=== PATIENT | male | born 1945 | race Caucasian/White ===

== ENCOUNTER 2024-01-15 15:07 | Emergency (ER) | payer MEDICARE, OTHER, SELFPAY ==
[2024-01-15] VITALS (8 sets, daily range): BP systolic 74–115; BP diastolic 57–87
[2024-01-15 15:52] LABS: ALT (SGPT) 36 U/L (0-50); AST (SGOT) 42 U/L (17-59); Albumin 3.8 g/dl (3.5-5.0); Alkaline Phosphatase 107 U/L (38-126); Blood Urea Nitrogen 21 mg/dl (9-20); Calcium 9.9 mg/dl (8.4-10.2); Carbon Dioxide 27 mmol/L (22-30); Chloride 101 mmol/L (98-107); Glucose 137 mg/dl (70-99); Potassium 4.4 mmol/L (3.5-5.1); Sodium 136 mmol/L (135-145); Total Bilirubin 0.9 mg/dl (0.2-1.3); Total Protein 6.6 g/dl (6.3-8.2); eGFR > 60.00
[2024-01-15 15:55] LABS: NT-proBNP 1940 pg/ml; Troponin I < 0.012 ng/ml
[2024-01-15 16:11] LABS: Hemoglobin 13.3 g/dL (13.0-18.0); Mean Corp Hgb Conc. 33.3 g/dL (33.0-37.0); Mean Corpuscular Hgb 29.9 pg (27.0-31.0); Mean Corpuscular Volume 89.9 fL (80.0-94.0); Mean Platelet Volume 10.5 fL (7.4-10.4); Platelet Count 129 10^3/uL (130-400); Red Blood Cell Count 4.45 10^6/uL (4.70-6.10); Red Cell Dist. Width 15.5 % (11.5-14.5); White Blood Cell Count 6.2 10^3/uL (4.8-10.8)
[2024-01-15 16:37] LABS: % Basophils 0.5 % (0-2); % Eosinophils 2.4 % (0-6); % Immature Granulocytes 0.3 % (0-0.5); % Lymphocytes 19.8 % (20.5-51.1); % Monocytes 9.3 % (1.7-9.3); % Neutrophils 67.7 % (42.2-75.2); Absolute Eosinophils 0.2 10^3/uL (0-0.7); Absolute Lymphocytes 1.2 10^3/uL (1.2-3.4); Absolute Monocytes 0.6 10^3/uL (0.1-0.6); Absolute Neutrophils 4.2 10^3/uL (1.4-6.5); Nucleated Red Blood Cells % 0 % (-)
--- NOTE | 2024-01-15 17:05 | ED.GENMED ---
History of Present Illness
General
Chief Complaint: Breathing Problem
Source: patient
Exam Limitations: none
Time Seen by Provider: 01/15/24 16:55
History of Present Illness
History of Present Illness:
See MDM
Past History
Past History
ED Past Medical History: Arrthythmia (A. fib) and HTN
ED Past Surgical History: None
Social History
Tobacco: Non-smoker
Alcohol: None
Phy Exam
Physical Exam
Physical Exam:
See MDM
Scores
Heart Failure Risk
Heart Failure Risk Score: Yes
History of Stroke or TIA: No
History of intubation for respiratory distress: No
Heart rate on ED arrival >/= 110: Yes
SaO2 <90% on arrival on room air: No
HR >/=110 during 3min walk test (or too ill to perform test): No
ECG has acute ischemic changes: No
Urea >/=12mmol/L (BUN 33.6mg/dL): No
Serum CO2>/=35mmol/L: No
Troponin I or T elevated to DE Level (0.4mg/dL): No
NT-proBNP >/=5,000ng/L (5,000pg/ml): No
HF Risk Score: 0
Admission Status: LOW RISK 2.8% Consider discharge to home with f/u visit to PCP/[facility] [facility]
Course
Orders/Labs/Results
Orders:
Orders
01/15/24 15:08
ECG [Electrocardiogram (*1)] Urgent
Reason for Study: Shortness of Breath
EKG- Treatment ONCE
01/15/24 15:24
Complete Blood Count/With Diff Urgent
Comprehensive Metabolic Panel Urgent
Pro-BNP [NT-proBNP] Urgent
Troponin I Urgent
01/15/24 16:04
CR Chest - 2 Views Urgent
Comment:
Reason For Exam: SOB
01/15/24 17:04
Diltiazem HCl [Cardizem] 20 mg IV NOW STA
01/15/24 18:35
Furosemide [Lasix] 40 mg IV ONCE ONE
Abnormal Lab Results
01/15/24
15:24
RBC 4.45 L 10^6/uL
(4.70-6.10)
RDW 15.5 H %
(11.5-14.5)
Plt Count 129 L 10^3/uL
(130-400)
MPV 10.5 H fL
(7.4-10.4)
Lymphocytes % 19.8 L %
(20.5-51.1)
BUN 21 H mg/dl
(9-20)
Glucose 137 H mg/dl
(70-99)
01/15/24 15:24
01/15/24 15:24
Vital Signs
Initial and Last Documented VS:
Initial Vital Signs
Temp Pulse Resp BP Pulse Ox
97.8 F 136 22 115/64 99
01/15/24 15:16 01/15/24 15:16 01/15/24 15:16 01/15/24 15:16 01/15/24 15:16
Last Documented Vital Signs
Temp Pulse Resp BP Pulse Ox
97.8 F 84 13 74/57 99
01/15/24 15:16 01/15/24 17:45 01/15/24 17:45 01/15/24 17:45 01/15/24 15:16
MDM/Problems Addressed
Differential Diagnosis Includes:
HPI and MDM Narrative:
78-year-old male presenting with shortness of breath and tachycardia. Symptoms worsening for past several days. Patient has a history of paroxysmal A-fib requiring cardioversion in the past. Patient claims compliance with Eliquis over the past
several months. He was recently placed on 40 mg Lasix over the past month or so. Patient states that his legs are becoming more swollen. His event decorator suggested ER evaluation.
On exam, patient is well-appearing nontoxic but he is in A-fib with RVR. There is clear signs of CHF exacerbation in both legs. He has not required increased oxygenation. Will give trial of IV Cardizem and attempt to chemically cardiovert. Will
obtain chest x-ray. Will consider electrical cardioversion
Physical exam
General: Well appearing and non-toxic
HEENT: protecting airway
Neck: appears supple
CV: No evidence of cyanosis. Tachycardic and irregular
Resp: No accessory muscle use. Lungs clear
Abd: Non-distended
Extremities: +2 pitting edema bilateral lower extremity
Neuro: alert
Psych: Normal affect
Skin: Intact
Problems Addressed including Acute and Chronic Conditions affecting care:
1. A-fib with RVR
Acuity: acute
Prognosis: unstable
Details: Will give IV Cardizem and attempt for chemical cardioversion. Will consider synchronized cardioversion given patient and stating compliance with Eliquis
2. CHF exacerbation
Acuity: acute
Prognosis: stable
Details: Unsure if this is likely related to A-fib. Will consider doubling Lasix for the next few days.
Updates
After IV Cardizem, patient now rate controlled. Patient states he feels much better. I still cardioversion but patient states he wants to go home and talk to his event decorator. Discussed doubling his Lasix for the next few days. Because he is
maxed on metoprolol, I cannot alter his dosing.
Differential Diagnosis (but not limited to): A-fib with RVR, CHF exacerbation, pulm edema
Testing considered: D-dimer but he is on eliquis
Drug therapy (if applicable): OTC meds, please see d/c instruction regarding Rx drugs
Amount and/or Complexity of Data Reviewed
Clinical info obtained from: Patient
External data reviewed: N/A
Labs I independently reviewed (but not limited to): trop normal, elevated BNP
Radiology: X-ray independently reviewed: Chest x-ray with mild edema
Pulse Ox: not hypoxic
EKG independently reviewed: A-fib with RVR, normal axis, no STEMI
Predictive Maintenance Technician: A-fib with RVR
Critical Care: The high probability of a clinically significant, sudden or life threatening deterioration of the cardiopulmonary system(s) required my full and direct attention, intervention and personal management. The aggregate critical care time
was 31 minutes. This time is in addition to time spent performing reported procedures but includes the following:
[x] Data Review and interpretation
[x] Patient assessment and monitoring of vital signs
[x] Documentation
[x] Medication orders and management
Risk of Complication:
Social Determinants of health: Good social support
Discussed with other providers: N/A
Escalation of Care includes Admit/Obs: After being observed in the Emergency Department, pt stable for discharge.
Occasional wrong word or 'sound a like' substitutions may have occurred due to the inherent limitations of voice recognition software. Read the chart carefully and recognize, using context, where substitutions have occurred.
*Critical Care Note
Total Time (30-74mins, 75-104mins- exclusive of procedures): 31 min
ED Attending Note
-
Portions of this chart may have been created with voice recognition software.� Occasional wrong word or��sound alike� substitutions may have occurred due to the inherent limitations of voice recognition software.
Discharge Plan
Departure
Patient Disposition: Home (Routine Discharge)
Date of Disposition: 01/15/24
Time of Disposition: 18:39
Patient with high blood pressure during this ER visit?: No
Discharge Problem:
A-fib, Acute exacerbation of CHF (congestive heart failure)
Instructions: Atrial Fibrillation (DC)
Prescriptions:
No Action
atorvastatin 40 MG tablet
40 mg PO DAILY
metoprolol succinate 100 MG tablet extended release 24 hr
100 mg PO DAILY
thiamine HCl (vitamin B1) 100 MG tablet
100 mg PO DAILY
lorazepam 0.5 MG tablet
0.5 mg PO DAILY
diphenhydramine HCl [Banophen] 25 MG capsule
25 mg PO HS
sertraline 25 MG tablet
25 mg PO HS
folic acid 1 MG tablet
1 mg PO DAILY
metformin 500 MG tablet extended release 24 hr
500 mg PO BID
potassium chloride 10 MEQ tablet,ER particles/crystals
20 meq PO DAILY
cholecalciferol (vitamin D3) 1,000 UNITS tablet
1,000 units PO DAILY
apixaban [Eliquis] 5 MG tablet
5 mg PO BID
magnesium oxide 400 MG tablet
400 mg PO DAILY
Referrals:
UNKNOWN - PT DOES,NOT KNOW [Family Provider] -
Activity Restrictions/Additional Instructions:
Please return for any worsening symptoms.
You may return at any time if you have further concerns.
As we discussed, please double your Lasix dose for the next 3 days. I want you to take 80 mg a day instead of 40 mg. Please return if you develop a fast heart rate as we discussed.
Please follow up with your event decorator at the first available appointment, preferably this week.
Thank you for choosing [facility].
Interventions
Interventions:
*Risk Screen - Suicide Last Done: 01/15/24 15:10
*General Assessment Last Done: 01/15/24 15:10
*Neglect/Abuse Screening Last Done: 01/15/24 15:10
ED- Cardiac Assessment Last Done: 01/15/24 17:53
ED- Pulmonary Assessment Last Done: 01/15/24 17:53
Discharge Date and Time
Print Language: IRANIAN
[2024-01-15] MEDS: CARDIZEM 20 MG IV (17:41)
[2024-01-15] MEDS: LASIX 40 MG IV (18:46)
== END 2024-01-15 18:49 | disposition home or self-care (01) ==
LOC: EMR 15:07
PROVIDERS: Emergency Medicine; EMERGENCY PHYSICIAN Student in an Organized Health Care Education/Training Program
DX: I48.91 Unspecified atrial fibrillation (principal); I11.0 Hypertensive heart disease with heart failure; I50.9 Heart failure, unspecified
CPT/HCPCS: 99283; 96374; 96375; 71046; 80053; 83880; 84484; 85025; 93005

== ENCOUNTER 2024-04-05 13:25 | Inpatient (IN) | payer OTHER, SELFPAY ==
[2024-04-05] VITALS (19 sets, daily range): BP systolic 89–134; BP diastolic 56–92; PULSE 77–85; BMI 25.8; BMI 25.1
--- NOTE | 2024-04-05 11:21 | ED.GENMED ---
History of Present Illness
General
Chief Complaint: Abnormal Lab Value
Source: patient
Exam Limitations: none
Time Seen by Provider: 04/05/24 11:09
History of Present Illness
History of Present Illness:
See MDM
Past History
Past History
ED Past Medical History: Arrthythmia (A. fib) and HTN
ED Past Surgical History: None
Social History
Tobacco: Non-smoker
Alcohol: None
Phy Exam
Physical Exam
Physical Exam:
See MDM
Course
Orders/Labs/Results
Orders:
Orders
04/05/24 11:09
IV Insert/Care/Rem.- Treatment PRN
04/05/24 11:10
Electrocardiogram (*1) Urgent
Reason for Study: Syncope
EKG- Treatment ONCE
04/05/24 11:19
IV Insert/Care/Rem.- Treatment PRN
Pantoprazole 80 mg/100 ml Nss [Protonix] 80 mg in 100 ml IV NOW
Pantoprazole [Protonix IV] 80 mg IV NOW STA
04/05/24 11:20
Electrocardiogram (*1) Stat
Reason for Study: Other
Other Reason for Exam: GI Bleed
EKG- Treatment ONCE
04/05/24 11:42
Complete Blood Count/With Diff Urgent
Comprehensive Metabolic Panel Urgent
PTT Urgent
Prothrombin Time Urgent
04/05/24 11:43
Type+Screen Urgent
04/05/24 11:54
0.9% Sodium Chloride 1000 ml [Nss] 1,000 ml IV BOLUS
04/05/24 12:14
ABO2 Urgent
BBK Wristband Number:
Associate notified that ABO2 has been ordered: [id number]
Date: 04/05/24
Time: 11:57
Real Estate Development Manager ID: [id number]
04/05/24 12:31
Blood Bank Products [* Blood Bank Products] Urgent
's Orders: Donato Bowles, DO
Blood Bank Products: *Packed RBC Leuko(PRBC's)
Quantity: 2
Transfuse Today: Yes
Reason: Bleeding
04/05/24 12:39
Consult Gastroenterology [GASTROINTESTINAL CONSULT] Urgent
Consulting Provider: Kwame Hooks
Was physician already notified: Yes
Abnormal Lab Results
04/05/24
11:42
WBC 3.5 L 10^3/uL
(4.8-10.8)
RBC 2.15 L 10^6/uL
(4.70-6.10)
Hgb 6.2 L* g/dL
(13.0-18.0)
Hct 19.6 L* %
(39.0-52.0)
MCHC 31.6 L g/dL
(33.0-37.0)
RDW 15.9 H %
(11.5-14.5)
Absolute Lymphs (auto) 0.7 L 10^3/uL
(1.2-3.4)
Immature Gran % 0.6 H %
(0-0.5)
Lymphocytes % 18.9 L %
(20.5-51.1)
PT 19.5 H Sec
(11.4-14.6)
APTT 39.0 H Sec
(23.4-35.0)
Carbon Dioxide 31 H mmol/L
(22-30)
Glucose 127 H mg/dl
(70-99)
Total Protein 5.4 L g/dl
(6.3-8.2)
Albumin 3.2 L g/dl
(3.5-5.0)
04/05/24 11:42
04/05/24 11:42
Vital Signs
Initial and Last Documented VS:
Initial Vital Signs
Temp Pulse Resp BP Pulse Ox
98.2 F 93 16 98/61 98
04/05/24 09:37 04/05/24 09:37 04/05/24 09:37 04/05/24 09:37 04/05/24 09:37
Last Documented Vital Signs
Temp Pulse Resp BP Pulse Ox
98.2 F 75 16 89/60 100
04/05/24 09:37 04/05/24 11:45 04/05/24 11:47 04/05/24 11:35 04/05/24 11:36
MDM/Problems Addressed
Differential Diagnosis Includes:
HPI and MDM Narrative:
79-year-old male presenting for evaluation of generalized fatigue, syncope and low hemoglobin. Patient has had black stools for over a week. He states blood work performed by PCP showed hemoglobin of 9. Patient is on Eliquis for A-fib and his
last dose was this morning. at bedside states that he looks more pale than normal
On exam, he is well-appearing nontoxic. He does appear pale. He is a soft and nontender abdomen he does have very dark stool that his hemoglobin positive. Will start PPI drip and obtain type and screen and ultimately admit
Physical exam
General: Well appearing and non-toxic
HEENT: protecting airway
Neck: appears supple
CV: No evidence of cyanosis. Regular rate, irregular rhythm
Resp: No accessory muscle use
Abd: Non-distended and nontender
Rectal: Melanotic stool that is guaiac positive
Extremities: No deformities
Neuro: alert
Psych: Normal affect
Skin: Pale
Problems Addressed including Acute and Chronic Conditions affecting care:
1. Upper GI bleeding
Acuity: acute
Prognosis: unstable
Details: Given the Eliquis and melanotic stool, will obtain type and screen. PPI bolus and drip started
Updates
11:50 AM patient started on IV fluids for hypotension
12:30 PM patient found to have a hemoglobin of 6.2. Patient signed consent for 2 units of blood. GI made aware
Differential Diagnosis (but not limited to): Upper GI bleeding, symptomatic anemia
Testing considered: CT angiogram abdomen pelvis but the bleeding does not appear brisk enough
Drug therapy (if applicable): OTC meds, please see d/c instruction regarding Rx drugs
Amount and/or Complexity of Data Reviewed
Clinical info obtained from: Patient
External data reviewed: N/A
Labs I independently reviewed (but not limited to): Hemoglobin 6.2
Radiology: N/A
Pulse Ox: not hypoxic
EKG independently reviewed: A-fib, normal axis, no STEMI
Lithographic Plate Maker: A-fib
Critical Care: The high probability of a clinically significant, sudden or life threatening deterioration of the cardiovascular/GI system(s) required my full and direct attention, intervention and personal management. The aggregate critical care
time was 35 minutes. This time is in addition to time spent performing reported procedures but includes the following:
[x] Data Review and interpretation
[x] Patient assessment and monitoring of vital signs
[x] Documentation
[x] Medication orders and management
Risk of Complication:
Social Determinants of health: Good social support
Discussed with other providers: Hospitalist, GI
Escalation of Care includes Admit/Obs: Given GI bleeding with symptomatic anemia, will transfuse and admit
Occasional wrong word or 'sound a like' substitutions may have occurred due to the inherent limitations of voice recognition software. Read the chart carefully and recognize, using context, where substitutions have occurred.
*Critical Care Note
Total Time (30-74mins, 75-104mins- exclusive of procedures): 35 min
ED Attending Note
-
Portions of this chart may have been created with voice recognition software.� Occasional wrong word or��sound alike� substitutions may have occurred due to the inherent limitations of voice recognition software.
Discharge Plan
Departure
Patient Disposition: Admit
Date of Disposition: 04/05/24
Time of Disposition: 12:44
Admit to: IMU
Presentation/result/management discussed w/ accepting MD/DO: Hospitalist
Discharge Problem:
UGIB (upper gastrointestinal bleed), Symptomatic anemia
Prescriptions:
No Action
metoprolol succinate 100 MG tablet extended release 24 hr
100 mg PO BID
sertraline 25 MG tablet
50 mg PO HS
Eliquis 5 MG tablet
5 mg PO BID
furosemide [Lasix] 40 mg Tablet
40 mg PO DAILY
metformin 500 mg Tablet
500 mg PO BID
cetirizine [Zyrtec] 10 mg Tablet
10 mg PO DAILY
atorvastatin [Lipitor] 10 mg Tablet
10 mg PO HS
donepezil 10 mg Tablet
10 mg PO HS
Theragen Tablet
1 tab PO DAILY
tamsulosin [Flomax] 0.4 mg Capsule
0.4 mg PO QPM
digoxin 62.5 mcg (0.0625 mg) Tablet
62.5 mcg PO DAILY
polyethylene glycol 3350 [Miralax] 17 gram Powder In Packet
17 g PO DAILY
diphenhydramine-acetaminophen [Tylenol PM Extra Strength] 25-500 mg Tablet
1 tab PO HSPRN PRN (Reason: SLEEP)
Referrals:
Hung Oneal CRNP [Family Provider] -
Interventions
Interventions:
*Risk Screen - Suicide Last Done: 04/05/24 09:37
*General Assessment Last Done: 04/05/24 09:37
*Neglect/Abuse Screening Last Done: 04/05/24 09:37
ED- Fall Risk Assessment Last Done: 04/05/24 11:49
*ED COVID-19 Vaccine History Last Done: 04/05/24 11:48
Discharge Date and Time
Print Language: URUGUAYAN
[2024-04-05] MEDS: PROTONIX IV 80 MG IV (11:43)
[2024-04-05] MEDS: PROTONIX 100 IV (11:43)
[2024-04-05] MEDS: NSS 1000 IV (11:57)
[2024-04-05 12:10] LABS: ALT (SGPT) 25 U/L (0-50); AST (SGOT) 24 U/L (17-59); Albumin 3.2 g/dl (3.5-5.0); Alkaline Phosphatase 82 U/L (38-126); Blood Urea Nitrogen 15 mg/dl (9-20); Carbon Dioxide 31 mmol/L (22-30); Chloride 103 mmol/L (98-107); Estimated Creatinine Clearance 79 ml/min; Glucose 127 mg/dl (70-99); Potassium 3.6 mmol/L (3.5-5.1); Sodium 141 mmol/L (135-145); Total Bilirubin 0.3 mg/dl (0.2-1.3); Total Protein 5.4 g/dl (6.3-8.2); eGFR > 60.00
[2024-04-05 12:11] LABS: INR 1.67; PT 19.5 Sec (11.4-14.6)
[2024-04-05 12:13] LABS: % Basophils 0.3 % (0-2); % Eosinophils 1.7 % (0-6); % Immature Granulocytes 0.6 % (0-0.5); % Lymphocytes 18.9 % (20.5-51.1); % Monocytes 7.9 % (1.7-9.3); % Neutrophils 70.6 % (42.2-75.2); Absolute Eosinophils 0.1 10^3/uL (0-0.7); Absolute Lymphocytes 0.7 10^3/uL (1.2-3.4); Absolute Monocytes 0.3 10^3/uL (0.1-0.6); Absolute Neutrophils 2.5 10^3/uL (1.4-6.5); Hematocrit 19.6 % (39.0-52.0); Hemoglobin 6.2 g/dL (13.0-18.0); Mean Corp Hgb Conc. 31.6 g/dL (33.0-37.0); Mean Corpuscular Hgb 28.8 pg (27.0-31.0); Mean Corpuscular Volume 91.2 fL (80.0-94.0); Mean Platelet Volume 9.3 fL (7.4-10.4); Nucleated Red Blood Cells % 0 % (-); Platelet Count 142 10^3/uL (130-400); Red Blood Cell Count 2.15 10^6/uL (4.70-6.10); Red Cell Dist. Width 15.9 % (11.5-14.5); White Blood Cell Count 3.5 10^3/uL (4.8-10.8)
--- NOTE | 2024-04-05 12:42 | HPS.HSE ---
Family Physician
-
Family Physician: CLAYTON Mcdonald
Chief Complaint
-
Dizziness
History of Present Illness
Patient is an 79 y/o male past medical history of A-Fib on Eliquis, hypertension, diabetes, and prior alcohol abuse who presents with dizziness. Patient reports dizziness for the past several days which has resulted in several falls. He was seen by
his PCP earlier this week who did blood work as outpatient. He received a call earlier today that his Hgb was low and was told to go to the emergency department for evaluation. He reports very dark to black colored stool for the past week. He
notes that consistency of his bowels has not been his normal. He denies prior history of GI bleed. He denies abdominal pain, nausea, vomiting or decreased appetite. He denies chest pain, palpitations or shortness of breath.
Medical History
Past Medical History
Past Medical History: Reports Other
Additional Past Medical History:
Paroxysmal Atrial Fibrillation
Essential Hypertension
Hyperlipidemia
Diabetes Mellitus, Type II
Depression
Mild Cognitive Impairment
BPH
Colon Cancer
Past Surgical History: Reports Other
Additional Past Surgical History:
Left Ankle ORIF
Hemicolectomy
Social History
Tobacco: Non-smoker
Alcohol: Former (Patient reports he has been sober for the past 4 years)
Family History
Family History: Not pertinent
Allergies / Home Medications
Allergies reflects when Allergies were last updated in [employer].
Home Medications with original date entered in [employer]
Allergy/Medication List:
Allergies
Allergy/AdvReac Type Severity Reaction Status Date / Time
No Known Allergies Allergy Verified 04/05/24 09:36
Home Medications
apixaban 5 mg tablet (Eliquis) 5 mg PO BID Blood clot prevention/tx 06/04/21
metoprolol succinate 100 mg tablet,extended release 24 hr 100 mg PO BID Heart disease/condition 06/04/21
sertraline 25 mg tablet 50 mg PO HS Depression 06/04/21
atorvastatin 10 mg tablet (Lipitor) 10 mg PO HS 04/05/24
cetirizine 10 mg tablet (Zyrtec) 10 mg PO DAILY 04/05/24
digoxin 62.5 mcg (0.0625 mg) tablet 62.5 mcg PO DAILY 04/05/24
diphenhydramine 25 mg-acetaminophen 500 mg tablet (Tylenol PM Extra Strength) 1 tab PO HSPRN PRN SLEEP 04/05/24
donepezil 10 mg tablet 10 mg PO HS 04/05/24
furosemide 40 mg tablet (Lasix) 40 mg PO DAILY 04/05/24
metformin 500 mg tablet 500 mg PO BID 04/05/24
polyethylene glycol 3350 17 gram oral powder packet (Miralax) 17 g PO DAILY 04/05/24
tamsulosin 0.4 mg capsule (Flomax) 0.4 mg PO QPM 04/05/24
therapeutic multivitamin 1 tab PO DAILY 04/05/24
Review of Systems
-
A 12 point ROS was completed and negative except as noted: Yes
Constitutional: Denies Fever or Chills
Respiratory: Denies Cough or Trouble Breathing
Cardiac: Denies Chest Pain or Palpitations
Abdomen/GI: Reports See HPI
Physical Exam
Vital Signs
Vital Signs
Temp Pulse Resp BP Pulse Ox
98.2 F 75 16 89/60 100
04/05/24 09:37 04/05/24 11:45 04/05/24 11:47 04/05/24 11:35 04/05/24 11:36
Physical Exam
General: Comfortable and Conversant
HEENT: Anicteric and Moist mucous membranes
Respiratory: Clear and Non Labored Respirations
Cardiac: S1/S2, Irregular Rhythm and Murmur
GI: Soft, Non Tender and Non Distended
Rectal: Hem Positive (Per ED provider)
Musculoskeletal: Other (+1 pitting edema bilateral lower extremities)
Skin: Warm and Dry
Neuro: Awake, Alert, Oriented and Nonfocal/grossly intact
Psych: Calm
Laboratory Results
-
04/05/24 11:42
04/05/24 11:42
Laboratory Results
PT 19.5 Sec (11.4-14.6) H 04/05/24 11:42
INR 1.67 04/05/24 11:42
APTT 39.0 Sec (23.4-35.0) H 04/05/24 11:42
Total Bilirubin 0.3 mg/dl (0.2-1.3) 04/05/24 11:42
AST 24 U/L (17-59) 04/05/24 11:42
ALT 25 U/L (0-50) 04/05/24 11:42
Alkaline Phosphatase 82 U/L (38-126) 04/05/24 11:42
Data Reviewed
-
Lab Data: Labs Reviewed by me
Impression/Plan
-
Acute Blood Loss Anemia secondary to GI Bleed
-Consult GI
-Transfuse 2 units PRBCs
-Hold Eliquis
-Continue Protonix IV BID
-Allow clear liquids for now then NPO after midnight for possible EGD in AM
Paroxysmal Atrial Fibrillation
-Eliquis on hold due to GI Bleed
-Hold metoprolol due to hypotension
-Continue digoxin
Essential Hypertension
-Metoprolol on hold - Resume when BP improves
Hyperlipidemia
-Continue atorvastatin
Diabetes Mellitus, Type II
-Hold metformin
-Monitor sugars and continue coverage insulin
Depression
-Continue sertraline
Mild Cognitive Impairment
-Continue Aricept
BPH
-Continue Flomax
Hx Colon Cancer s/p Hemicolectomy
DVT proph: SCDs
Code Status: Full Code
--- NOTE | 2024-04-05 13:37 | W.PN.UPDATE ---
Update Note
Progress Note Update
This is an addendum to the H&P written by Maira Coleman 04/05/2024. Patient seen and examined independently with PA.
79-year-old male past medical history of colon cancer status post hemicolectomy 7 years ago, persistent atrial fibrillation on Eliquis, dementia, type 2 diabetes, anxiety/depression, former alcohol use disorder, BPH, presenting with dizziness
secondary to symptomatic anemia with black stools for the past week. Patient does not drink alcohol anymore. No NSAID use.
Patient initially hypotensive with blood pressure 98/61. Hemoglobin of 6.2.
Concern for upper GI bleeding with hypotension. No active bleeding. Clear liquid diet, n.p.o. past midnight for likely EGD tomorrow once Eliquis washout. Blood pressure improved with IV fluids. 2 units of blood, anemia workup. Protonix drip.
GI consulted. Hold antihypertensive medications including Lasix.
--- NOTE | 2024-04-05 14:05 | CON.GI ---
Addendum entered and electronically signed by Kwame Hooks DO 04/05/24 18:39:
I saw and examined the patient.
The AIRCRAFT REFUELLER's note was reviewed and I agree with the note.
Comment: This is a 79 y.o male with past medical history of HTN, HLD, DM, A Fib (on eliquis), EtOH abuse without cirrhosis, and colon cancer (s/p resection > 15 yrs ago) who presented to the ED after abnormal outpatient labs for a low Hgb. Found to
have symptomatic anemia and dark black stools concerning for melena over the past week. No prior history of GI bleeding in the past. Denies any prior EGD and admits last colonoscopy was 5 years ago for surveillance given personal history of CRC.
Denies any prior known liver disease and denies any significant EtOH abuse. Last dose of eliquis this AM on 04/05/2024. Otherwise, no other NSAIDs or other anti-platelet agents. HD-stable although soft BP with initial SBP 90s in ED. Labs notable for
BBUN 15 and Magnetizer 0.8. LFTs wnl. CBC with Hgb 6.2 (prev 13.3 on 01/2024) and plts 142. INR 1.67 (likely 2/2 DOAC rather than synthetic dysfunction). Etiology concerning for non-variceal UGIB resulting in symptomatic anemia and acute blood loss anemia.
Unfortunately, due to timing of eliquis earlier this AM unable to perform EGD as therapeutic interventions would be quite limited. Fortunately, remains HD-stable and responding to blood transfusions and fluid resuscitation without signs to suggest
brisk GI bleeding.
Recommendations:
- Okay for CLD
- S/p 2 uPRBCs. Trend Hgb with serial CBC, transfuse for goal Hgb > 8.0
- IV PPI gtt x 72 hrs
- IV iron while inpatient
- Given recent eliquis (04/05- ) deferred EGD for today
- Plan for tentative EGD on 04/08/24, to allow for two full day washout of eliquis
- Will reconsider earlier EGD if clinical course were to change and concern for brisk GI bleeding
- If EGD is unremarkable this admission, would then require colonoscopy especially given hx of CRC. Doubt LGIB
- If brisk hematochezia or concern for HD-instability would obtain CTA in attempts of localization
- Avoidance of all NSAIDs
- Rest of care as outlined below
GI team will continue to follow while inpatient.
Thank you for allowing me to participate in the care of this patient. Please do not hesitate to call for any further questions.
Original Note:
Consultation
-
Date/Time Consultation Requested: 04/05/24 1239
Date/Time Consultation Performed: 04/05/24 1345
Requesting Provider: GEORGE Rea
Performing Provider: Dr. Hooks/CLAYTON Figueroa
Reason for Consultation: melena, anemia
Medical History
Chief Complaint / HPI
Chief Complaint: abnormal labs
History of Present Illness:
79-year-old male with past medical history of atrial fibrillation on Eliquis last dose this morning, hypertension, diabetes, prior alcohol abuse (quit 4 years ago), colon cancer status post colon resection approximately 15 years ago, hyperlipidemia,
depression and BPH who presents to the emergency room after being called by his PCP and notified about significant anemia. The patient does state that he had noticed that his stools were darker over the past week. He also did have some dyspnea on
exertion and fatigue over the past 2 days. He also did have momentary episodes of passing out once each day over the past 2 days. Other than his dark stools he had no GI complaints. He has never had an upper endoscopy before he states his last
colonoscopy was approximately [address] Zelaya. He states that he did not require any further colonoscopies after that point. He denies ever having any upper GI symptoms. He is a reformed smoker however quit many years ago. He used to
drink upwards of a quarter bottle of vodka daily at his worst. He was never told of any liver disease. He states he had a recent cardioversion for atrial fibrillation and he is going to require an ablation as he remains in atrial fibrillation. He
denies any fevers, chills, nausea, vomiting, hematochezia, dysphagia or odynophagia. He denies any early satiety or unintentional weight loss. He eats well. He does state that he was placed on Lasix and he did reduce weight secondary to water
weight and getting up to urinate 6 times a night. Patient is currently being transfused 1 out of 2 units packed red blood cells. WBC 3.5, hemoglobin 6.2, hematocrit 19.6, platelets 142, PT 19.5, INR 1.67, sodium 141, potassium 3.6, chloride 103,
BUN 15, creatinine 0.8, glucose 127, total bilirubin 1.3, AST 24, ALT 25, alk phos 82, albumin 3.2 rectal in ER by ER provider shows dark OB positive stool.
Past Medical History
Past Medical History: Arrhythmias (Atrial fibrillation), Cancer (Colon cancer status post resection), HTN, Hypercholesterolemia, NIDDM and Other (Prior alcohol abuse (quit 4 years ago), depression, BPH)
Past Surgical History: Other (Left ankle ORIF, hemicolectomy)
Social History
Tobacco: Former Smoker
Alcohol: Former (Prior alcohol abuse (quit 4 years ago))
Drug: None
Personal:
Living: With Family
Employment: Retired
Family History
Family History: Other (Paternal grandfather colon cancer, father colon cancer)
Allergies / Home Medications
Allergy/AdvReac Type Severity Reaction Status Date / Time
No Known Allergies Allergy Verified 04/05/24 09:36
�Medication �Instructions �Recorded
apixaban 5 mg tablet (Eliquis) 5 mg PO BID Blood clot 06/04/21
prevention/tx
metoprolol succinate 100 mg 100 mg PO BID Heart 06/04/21
tablet,extended release 24 hr disease/condition
sertraline 25 mg tablet 50 mg PO HS Depression 06/04/21
atorvastatin 10 mg tablet (Lipitor) 10 mg PO HS 04/05/24
cetirizine 10 mg tablet (Zyrtec) 10 mg PO DAILY 04/05/24
digoxin 62.5 mcg (0.0625 mg) tablet 62.5 mcg PO DAILY 04/05/24
diphenhydramine 25 1 tab PO HSPRN PRN SLEEP 04/05/24
mg-acetaminophen 500 mg tablet
(Tylenol PM Extra Strength)
donepezil 10 mg tablet 10 mg PO HS 04/05/24
furosemide 40 mg tablet (Lasix) 40 mg PO DAILY 04/05/24
metformin 500 mg tablet 500 mg PO BID 04/05/24
polyethylene glycol 3350 17 gram 17 g PO DAILY 04/05/24
oral powder packet (Miralax)
tamsulosin 0.4 mg capsule (Flomax) 0.4 mg PO QPM 04/05/24
therapeutic multivitamin 1 tab PO DAILY 04/05/24
Review of Systems
-
All other systems: A 12 pt ROS was Negative except as stated above in HPI
Vital Signs
Temp Pulse Resp BP Pulse Ox
97.7 F 91 18 115/85 100
04/05/24 13:49 04/05/24 13:49 04/05/24 13:49 04/05/24 13:49 04/05/24 13:49
Physical Exam
Exam
General: No Apparent Distress
HEENT: Anicteric
Respiratory: Clear
Cardiac: Irregular Rhythm
GI: Soft, Non Tender, Non Distended and Normal Bowel Sounds
Musculoskeletal: Edema (Trace bilateral lower extremity edema)
Skin: Warm and Dry
Neuro: AO x 3
Psych: Calm
Results
WBC 3.5 10^3/uL (4.8-10.8) L 04/05/24 11:42
Hgb 6.2 g/dL (13.0-18.0) L* 04/05/24 11:42
Hct 19.6 % (39.0-52.0) L* 04/05/24 11:42
MCV 91.2 fL (80.0-94.0) 04/05/24 11:42
Plt Count 142 10^3/uL (130-400) 04/05/24 11:42
Absolute Neuts (auto) 2.5 10^3/uL (1.4-6.5) 04/05/24 11:42
PT 19.5 Sec (11.4-14.6) H 04/05/24 11:42
INR 1.67 04/05/24 11:42
APTT 39.0 Sec (23.4-35.0) H 04/05/24 11:42
Sodium 141 mmol/L (135-145) 11 11:42
Potassium 3.6 mmol/L (3.5-5.1) 11 11:42
Chloride 103 mmol/L (98-107) 11 11:42
Carbon Dioxide 31 mmol/L (22-30) H 04/05/24 11:42
BUN 15 mg/dl (9-20) 04/05/24 11:42
Creatinine 0.8 mg/dL (0.7-1.3) 11 11:42
Calcium 9.0 mg/dl (8.4-10.2) 04/05/24 11:42
Total Bilirubin 0.3 mg/dl (0.2-1.3) 04/05/24 11:42
AST 24 U/L (17-59) 04/05/24 11:42
ALT 25 U/L (0-50) 04/05/24 11:42
Alkaline Phosphatase 82 U/L (38-126) 04/05/24 11:42
Diagnostic Image Results:
Chest x-ray:
IMPRESSION: Mild CHF with probable minimal bilateral effusions. Small volume pleural fluid loculated along the fissures on the right.
Prior GI Procedures:
EGD: Never had
Colonoscopy: Per patient he states his last colonoscopy was with Dr. Zelaya approximately 5 years ago
Assessment / Plan
-
79-year-old male with past medical history of atrial fibrillation on Eliquis last dose this morning, hypertension, diabetes, prior alcohol abuse (quit 4 years ago), colon cancer status post colon resection approximately 15 years ago, hyperlipidemia,
depression and BPH who presents to the emergency room after being called by his PCP and notified about significant anemia. The patient does state that he had noticed that his stools were darker over the past week, however solid. He also did have
some dyspnea on exertion and fatigue over the past 2 days. He also did have momentary episodes of passing out once each day over the past 2 days. Patient is currently being transfused 1 out of 2 units packed red blood cells. WBC 3.5, hemoglobin
6.2, hematocrit 19.6, platelets 142, PT 19.5, INR 1.67, sodium 141, potassium 3.6, chloride 103, BUN 15, creatinine 0.8, glucose 127, total bilirubin 1.3, AST 24, ALT 25, alk phos 82, albumin 3.2 rectal in ER by ER provider shows dark OB positive
stool. Last dose of Eliquis this a.m. Patient's vital signs temp 97.7, pulse 91, respirations 18, blood pressure 115/85 O2 sat 100% on room air.
Impression:
Symptomatic anemia
Melena/OB positive stool
Chronic anticoagulation in the form of Eliquis (last taken 04/05/2024 in am)
A-fib
History of colon cancer status post resection approximately 15 years ago (last colonoscopy about 5 to 6 years ago)
Plan:
-Transfuse 2 units packed red blood cells then repeat CBC, trend
-Eliquis on hold
-Continue with Protonix drip
-Okay for clear liquid diet, no reds
-Eventual EGD, timing to be determined. No EGD planned for today.
-If EGD negative will need colonoscopy
-If patient shows signs of active bleeding would get CTA
-Further recommendations to be forthcoming
-
-
Thank you for consultation and allowing me to participate in the patient's care. Please call the front worker GI physician during the after hours with any questions or concerns.
[2024-04-05 14:14] LABS: Magnesium 1.9 mg/dl (1.6-2.3)
[2024-04-05 14:18] LABS: Iron < 20 ug/dl (49-181)
[2024-04-05 14:23] LABS: Total Iron Binding Capacity 309 ug/dl (261-462)
[2024-04-05 14:55] LABS: Ferritin 15.9 ng/ml (17.9-464.0)
[2024-04-05 15:26] LABS: Folate 15.6 ng/ml (2.76-20); Vitamin B12 634 pg/ml (239-931)
[2024-04-05] MEDS: NOVOLOG FLEXPEN-LOW RESISTANCE 1 UNITS SC (18:18)
[2024-04-05] MEDS: FLOMAX 0.4 MG PO (18:19)
[2024-04-05 18:28] LABS: Glucose - Point of Care 152 mg/dl (70-99)
--- NOTE | 2024-04-05 19:50 | PTCARENOTE ---
Received pt from day shift. aaox3, forgetful at times. Afib on the monitor. Educated about importance of hygiene and SCDs. Pt agreed to wear SCDs, but denied hygiene despite education. Pt resting in bed with call gutierrez in reach.
[2024-04-05 20:01] LABS: Hematocrit 25.6 % (39.0-52.0); Hemoglobin 8.3 g/dL (13.0-18.0)
[2024-04-05] MEDS: LIPITOR 10 MG PO (21:32)
[2024-04-05] MEDS: PROTONIX IV 40 MG IV (21:32)
[2024-04-05] MEDS: ARICEPT 10 MG PO (21:32)
[2024-04-05] MEDS: ZOLOFT 50 MG PO (21:32)
[2024-04-05] MEDS: NSS (PRESERVATIVE FREE) 10 ML IV (21:33)
[2024-04-05 21:48] LABS: Glucose - Point of Care 128 mg/dl (70-99)
[2024-04-06] VITALS (20 sets, daily range): BP systolic 82–128; BP diastolic 55–95; PULSE 74–111; O2SAT 98; BMI 25.5
[2024-04-06 00:56] LABS: Hematocrit 22.8 % (39.0-52.0); Hemoglobin 7.6 g/dL (13.0-18.0)
[2024-04-06 05:41] LABS: Glucose - Point of Care 83 mg/dl (70-99)
[2024-04-06 06:19] LABS: Hematocrit 23.4 % (39.0-52.0); Hemoglobin 7.7 g/dL (13.0-18.0); Mean Corp Hgb Conc. 32.9 g/dL (33.0-37.0); Mean Corpuscular Hgb 29.8 pg (27.0-31.0); Mean Corpuscular Volume 90.7 fL (80.0-94.0); Mean Platelet Volume 9.7 fL (7.4-10.4); Platelet Count 136 10^3/uL (130-400); Red Blood Cell Count 2.58 10^6/uL (4.70-6.10); White Blood Cell Count 4.1 10^3/uL (4.8-10.8)
[2024-04-06 07:06] LABS: Blood Urea Nitrogen 14 mg/dl (9-20); Calcium 8.8 mg/dl (8.4-10.2); Carbon Dioxide 28 mmol/L (22-30); Chloride 107 mmol/L (98-107); Estimated Creatinine Clearance 91 ml/min; Glucose 84 mg/dl (70-99); Potassium 3.9 mmol/L (3.5-5.1); Sodium 141 mmol/L (135-145); eGFR > 60.00
[2024-04-06] MEDS: NOVOLOG FLEXPEN-LOW RESISTANCE SC ×3 (07:55→17:00)
[2024-04-06] MEDS: ZYRTEC 10 MG PO (08:03)
[2024-04-06 08:35] LABS: Glycohemoglobin (HgbA1c) 4.8 % (4.0-5.6)
--- NOTE | 2024-04-06 09:53 | W.PN.HOSP.TC ---
Today's Communication/Plan
-
Clear liquid diet
Monitor hemoglobin
Assessment / Plan
Assessment / Plan
Gen-AAOx3, NAD
HEENT-NC, AT, anicteric, clear oral mm
Neck-supple
CV-reg, no M, +S1/S2
Lungs-clear B/L
Abd-soft, NT, ND
Ext-no edema
Musculoskeletal-no cyanosis, clubbing
Skin-warm and dry
Neuro-grossly non-focal
Psych-calm, cooperative
Acute GI bleed -presentation with melena for at least a week. Denies hematochezia. Hypotensive on arrival now improved. GI bleed exacerbated by anticoagulation with Eliquis. Eliquis on hold in preparation for EGD on Monday.
Protonix drip x 72 hours per GI. Clear liquid diet, n.p.o. Monday morning.
Acute blood loss anemia -due to GI bleed. Transfused 2 units of blood with improvement in hemoglobin, 7.7 this morning. Continue to monitor. Baseline hemoglobin was 13 in January of this year.
Leukopenia -WBC 4.1. Unclear etiology. Monitor for now.
Atrial fibrillation
Essential hypertension
Hyperlipidemia -on atorvastatin.
Mild cognitive impairment -on donepezil.
History of colon cancer -underwent hemicolectomy.
BPH
Depression
DM 2 without hyperglycemia -glucose 84 this morning. Hemoglobin A1c 4.8%. Likely can permanently discontinue metformin.
full code
Anticipated Discharge: > 48 hours
Subjective/Interval History
-
Date of Service: April 06, 2024
Patient seen and examined. No complaints.
Objective Data
-
Labs:
Laboratory Results
04/06/24 04/06/24
00:41 05:57
WBC 4.1 L
Hgb 7.6 L 7.7 L
Hct 22.8 L 23.4 L
Plt Count 136
Sodium 141
Potassium 3.9
Chloride 107
Carbon Dioxide 28
BUN 14
Creatinine 0.7
Glucose 84
Calcium 8.8
Vital Signs:
Vital Signs
Temp Pulse Resp BP Pulse Ox
97.8 F 86 18 113/67 98
04/06/24 07:50 04/06/24 08:00 04/06/24 08:00 04/06/24 08:00 04/06/24 08:00
I&O
04/05/24 04/06/24 04/07/24
06:59 06:59 05:59
Intake Total 1600 / 1600
Output Total 550 / 550 150 / 150
Balance 1050 / 1050 -150 / -150
Review of Systems
-
History Source: Patient
All other systems: Reviewed and negative
[2024-04-06] MEDS: PROTONIX IV 40 MG IV ×2 (10:59→22:16)
[2024-04-06] MEDS: NSS (PRESERVATIVE FREE) 10 ML IV ×2 (10:59→22:15)
--- NOTE | 2024-04-06 11:36 | W.PN.GI.CBS2 ---
Today's Communication / Plan
-
NPO at [place] with plans for EGD tomorrow, 04/07/24, for further evaluation of melena and supsected UGIB.
Assessment / Plan
-
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 Found to have
symptomatic anemia and dark black stools concerning for melena over the past week. No prior history of GI bleeding in the past. Denies any prior EGD and admits last colonoscopy was 5 years ago for surveillance given personal history of CRC. Denies
any prior known liver disease and denies any significant EtOH abuse. Last dose of eliquis this AM on 04/05/2024. Otherwise, no other NSAIDs or other anti-platelet agents. HD-stable although soft BP with initial SBP 90s in ED. Labs notable for BBUN 15
and Social Services Designee 0.8. LFTs wnl. CBC with Hgb 6.2 (prev 13.3 on 01/2024) and plts 142. INR 1.67 (likely 2/2 DOAC rather than synthetic dysfunction). Etiology concerning for non-variceal UGIB resulting in symptomatic anemia and acute blood loss anemia.
Unfortunately, due to timing of eliquis earlier this AM unable to perform EGD as therapeutic interventions would be quite limited. Fortunately, remains HD-stable and responding to blood transfusions and fluid resuscitation without signs to suggest
brisk GI bleeding.
#Melena c/f #UGIB
#Symptomatic Anemia
#Acute Blood Loss Aenima
#A Fib (on eliquis, last dose 04/05)
#Hx of CRC (s/p resection, last colon 5-6 yrs ago)
Recommendations:
- Okay for CLD today. Keep NPO at [facility]
- Trend Hgb with serial CBC, transfuse for goal Hgb > 7.0
- Continue IV PPI gtt
- Continue to hold eliquis
- Plan for EGD tomorrow, 04/07/2024, for further evaluation of melena given suspected UGIB
- If EGD is unremarkable, will require a colonoscopy especially given hx of CRC
- Avoidance of all NSAIDs
- Rest of care per primary team
Discussed with primary internal medicine team this AM.
Subjective
Subjective
Date of Service: April 06, 2024
- S/p 2 uPRBCs with for Hgb 6.2 -> 8.3 -> 7.6 -> 7.7
- Otherwise, no acute events overnight
Feeling well, resting comfortably in bed. Denies any further melena or bloody stools. Eliquis remains on hold (last dose 04/05). No other nausea/vomiting or abdominal pain.
Objective
Data Reviewed
Laboratory Data:
Laboratory Results
04/06/24 05:57
04/06/24 05:57
Laboratory Results
PT 19.5 Sec (11.4-14.6) H 04/05/24 11:42
INR 1.67 04/05/24 11:42
APTT 39.0 Sec (23.4-35.0) H 04/05/24 11:42
Magnesium 1.9 mg/dl (1.6-2.3) 04/05/24 11:42
Total Bilirubin 0.3 mg/dl (0.2-1.3) 04/05/24 11:42
AST 24 U/L (17-59) 04/05/24 11:42
ALT 25 U/L (0-50) 04/05/24 11:42
Alkaline Phosphatase 82 U/L (38-126) 04/05/24 11:42
Vital Signs and I&O:
Vital Signs
Temp Pulse Resp BP Pulse Ox
97.6 F 67 16 93/55 99
04/06/24 11:00 04/06/24 10:00 04/06/24 10:00 04/06/24 10:00 04/06/24 08:57
I&O
04/05/24 04/06/24 04/07/24
06:59 06:59 05:59
Intake Total 1600 / 1600
Output Total 550 / 550 150 / 150
Balance 1050 / 1050 -150 / -150
Physical Exam
Physical Exam
HEENT: Anicteric and Moist mucous membranes
Cardiology: Normal Sinus Rhythm
Pulmonary: Clear
GI: Soft, Non Distended and Non Tender
Extremities: No Edema
Neuro: Non Focal
[2024-04-06 11:54] LABS: Glucose - Point of Care 146 mg/dl (70-99)
[2024-04-06] MEDS: LANOXIN 62.5 MCG PO (13:35)
--- NOTE | 2024-04-06 13:53 | PTCARENOTE ---
Assumed care for patient during the day, received report via nightshift RN. Pt AAOx3 forgetful at times. A-fib on tele. HR 70-90. 97% on RA. Pt wearing SCDs. Pt stand at bedside to void using urinal. Pt at bedside. Pt appears to be resting in
bed comfortably call gutierrez is within reach.
[2024-04-06 16:56] LABS: Glucose - Point of Care 91 mg/dl (70-99)
[2024-04-06] MEDS: FLOMAX 0.4 MG PO (17:59)
--- NOTE | 2024-04-06 20:00 | PTCARENOTE ---
Patient received in bed, AAOx3, forgetful at times, ENTERPRISE. Afib on monitor, +1 lower extremity edema noted. Knee high SCDs maintained. Lungs diminishe bilaterally, pulse ox 98% on room air. Abdomen round with hypoactive bowel sounds. Voiding
clear yellow urine. #20 g in RAC #20 g in right wrist flushed and patent. CAll gutierrez with in reach
[2024-04-06] MEDS: ARICEPT 10 MG PO (22:15)
[2024-04-06] MEDS: ZOLOFT 50 MG PO (22:15)
[2024-04-06] MEDS: LIPITOR 10 MG PO (22:15)
[2024-04-06 23:35] LABS: Glucose - Point of Care 116 mg/dl (70-99)
[2024-04-07] VITALS (19 sets, daily range): BP systolic 13–134; BP diastolic 61–95; BMI 26.0
[2024-04-07 04:17] LABS: % Basophils 0.5 % (0-2); % Eosinophils 4.1 % (0-6); % Immature Granulocytes 0.3 % (0-0.5); % Lymphocytes 27.1 % (20.5-51.1); % Monocytes 9.3 % (1.7-9.3); % Neutrophils 58.7 % (42.2-75.2); Absolute Eosinophils 0.2 10^3/uL (0-0.7); Absolute Lymphocytes 1.1 10^3/uL (1.2-3.4); Absolute Monocytes 0.4 10^3/uL (0.1-0.6); Absolute Neutrophils 2.3 10^3/uL (1.4-6.5); Hematocrit 23.3 % (39.0-52.0); Hemoglobin 7.6 g/dL (13.0-18.0); Mean Corp Hgb Conc. 32.6 g/dL (33.0-37.0); Mean Corpuscular Hgb 28.5 pg (27.0-31.0); Mean Corpuscular Volume 87.3 fL (80.0-94.0); Mean Platelet Volume 9.7 fL (7.4-10.4); Nucleated Red Blood Cells % 0 % (-); Platelet Count 133 10^3/uL (130-400); Red Blood Cell Count 2.67 10^6/uL (4.70-6.10); Red Cell Dist. Width 16.1 % (11.5-14.5); White Blood Cell Count 3.9 10^3/uL (4.8-10.8)
[2024-04-07 06:11] LABS: Glucose - Point of Care 98 mg/dl (70-99)
[2024-04-07] MEDS: NOVOLOG FLEXPEN-LOW RESISTANCE SC ×3 (08:00→17:00)
--- NOTE | 2024-04-07 08:27 | W.PN.HOSP.TC ---
Today's Communication/Plan
-
Resume metoprolol
EGD today
Monitor hemoglobin
Assessment / Plan
Assessment / Plan
Gen-AAOx3, NAD
HEENT-NC, AT, anicteric, clear oral mm
Neck-supple
CV-reg, no M, +S1/S2
Lungs-clear B/L
Abd-soft, NT, ND
Ext-no edema
Musculoskeletal-no cyanosis, clubbing
Skin-warm and dry
Neuro-grossly non-focal
Psych-calm, cooperative
Acute GI bleed -presentation with melena for at least a week. Denies hematochezia. Hypotensive on arrival now improved. GI bleed exacerbated by anticoagulation with Eliquis. Eliquis on hold in preparation for EGD on Monday. No bowel movements
in the hospital so far.
EGD today per GI.
Acute blood loss anemia -due to GI bleed. Transfused 2 units of blood. Hemoglobin stable, 7.6 today. Continue to monitor. Baseline hemoglobin was 13 in January of this year.
Leukopenia -WBC 3.9. Unclear etiology. Monitor for now. ANC 2300.
Atrial fibrillation -hold Eliquis for GI bleed. Resume Toprol-XL at 50% of home dose given relative hypotension.
Essential hypertension -stable.
Hyperlipidemia -on atorvastatin.
Mild cognitive impairment -on donepezil.
History of colon cancer -underwent hemicolectomy.
BPH
Depression
DM 2 without hyperglycemia -glucose 84 this morning. Hemoglobin A1c 4.8%. Likely can permanently discontinue metformin.
Full code
Anticipated Discharge: Within 24 hours
Subjective/Interval History
-
Date of Service: April 07, 2024
Patient seen and examined. No complaints.
Objective Data
-
Labs:
Laboratory Results
04/07/24 04/07/24
04:02 08:18
WBC 3.9 L
Hgb 7.6 L
Hct 23.3 L
Plt Count 133
Sodium Pending
Potassium Pending
Chloride Pending
Carbon Dioxide Pending
BUN Pending
Creatinine Pending
Glucose Pending
Calcium Pending
Vital Signs:
Vital Signs
Temp Pulse Resp BP Pulse Ox
97.6 F 121 20 123/81 95
04/07/24 03:33 04/07/24 06:00 04/07/24 06:00 04/07/24 06:00 04/07/24 04:00
I&O
04/06/24 04/07/24 04/08/24
07:59 06:59 06:59
Intake Total
Output Total
Balance
Review of Systems
-
History Source: Patient
All other systems: Reviewed and negative
[2024-04-07 09:10] LABS: Blood Urea Nitrogen 11 mg/dl (9-20); Calcium 8.8 mg/dl (8.4-10.2); Carbon Dioxide 28 mmol/L (22-30); Chloride 107 mmol/L (98-107); Estimated Creatinine Clearance 91 ml/min; Glucose 100 mg/dl (70-99); Potassium 3.8 mmol/L (3.5-5.1); Sodium 141 mmol/L (135-145); eGFR > 60.00
--- NOTE | 2024-04-07 10:18 | CM ---
Reviewed chart, attempted to meet with patient to obtain information for assessment, however he was not in room. Placed a call to his , Essence. She stated that patient lives with her at [facility] in an apartment with elevator
access. Patient's described patient as independent/supervision with dressing and bathing as well as all personal care. He ambulates in the community with a cane however ambulates independently inside. She, patient's , does all the
boat master, cooking, cleaning and laundry. She drives patient and can get him to all of his appointments and she does all of the shopping.
Patient has had VN services through various agencies in the past but is not current with one.
He goes to outpatient rehab and his stated that patient has not been to a F in the past.
Patient has a prescription plan and uses, [facility] in [place] for all of his medications.
His PCP is, Hung Oneal.
Patient's is hopeful that patient will be able to return home with VN if indicated at time of discharge.
Plan: Case management will continue to follow and assist with discharge planning. Tentative home with VN-will discuss SNF if indicated.
[2024-04-07 10:58] LABS: Glucose - Point of Care 113 mg/dl (70-99)
[2024-04-07] MEDS: PROTONIX IV 40 MG IV ×2 (12:02→21:34)
[2024-04-07] MEDS: ZYRTEC 10 MG PO (12:03)
[2024-04-07] MEDS: NSS (PRESERVATIVE FREE) 10 ML IV ×2 (12:03→21:33)
[2024-04-07] MEDS: TOPROL XL PO (12:04)
[2024-04-07] MEDS: LANOXIN 62.5 MCG PO (12:05)
[2024-04-07] MEDS: FLOMAX 0.4 MG PO (17:04)
[2024-04-07 17:11] LABS: Glucose - Point of Care 112 mg/dl (70-99)
[2024-04-07] MEDS: TOPROL XL 50 MG PO (20:18)
--- NOTE | 2024-04-07 21:30 | PTCARENOTE ---
Report received from previous shift RN [id number]. Pt in bed, AAO3, no complaints offered. Lung sounds are clear, decreased in b/l base, denies cough/SOB, pox 96% on room air. Telemetry rhythm reveals Afib, HR 70-90's, no edema noted, palpable peripheral
pulses present, knee high SCDs per order. +BS, abdomen soft nontender, tolerating clear liquid diet. Urinal at bedside, voiding yellow urine without difficulty. R AC and R FA int's flushed and patent, capped. Skin intact. Safe environment
maintained, call gutierrez within reach. Will monitor closely.
[2024-04-07] MEDS: ARICEPT 10 MG PO (21:33)
[2024-04-07] MEDS: LIPITOR 10 MG PO (21:33)
[2024-04-07] MEDS: ZOLOFT 50 MG PO (21:33)
[2024-04-07 21:44] LABS: Glucose - Point of Care 119 mg/dl (70-99)
[2024-04-08] VITALS (20 sets, daily range): BP systolic 92–137; BP diastolic 56–112; PULSE 71–102; O2SAT 94; BMI 24.8; BMI 26.0
[2024-04-08] MEDS: MELATONIN 3 MG PO ×2 (02:34→20:28)
--- NOTE | 2024-04-08 02:36 | PTCARENOTE ---
Pt reports not sleeping well tonight and most of admission in hospital, requesting sleep medication. Discussed w jagdeep Hogan, 1x Melatonin ordered and administered. Will monitor for effect.
[2024-04-08 05:24] LABS: % Basophils 0.6 % (0-2); % Eosinophils 3.8 % (0-6); % Immature Granulocytes 0.4 % (0-0.5); % Lymphocytes 14.7 % (20.5-51.1); % Monocytes 9.3 % (1.7-9.3); % Neutrophils 71.2 % (42.2-75.2); Absolute Eosinophils 0.2 10^3/uL (0-0.7); Absolute Lymphocytes 0.7 10^3/uL (1.2-3.4); Absolute Monocytes 0.5 10^3/uL (0.1-0.6); Absolute Neutrophils 3.6 10^3/uL (1.4-6.5); Hematocrit 23.4 % (39.0-52.0); Hemoglobin 7.6 g/dL (13.0-18.0); Mean Corp Hgb Conc. 32.5 g/dL (33.0-37.0); Mean Corpuscular Hgb 28.7 pg (27.0-31.0); Mean Corpuscular Volume 88.3 fL (80.0-94.0); Mean Platelet Volume 9.6 fL (7.4-10.4); Nucleated Red Blood Cells % 0 % (-); Platelet Count 131 10^3/uL (130-400); Red Blood Cell Count 2.65 10^6/uL (4.70-6.10); Red Cell Dist. Width 15.8 % (11.5-14.5); White Blood Cell Count 5.1 10^3/uL (4.8-10.8)
--- NOTE | 2024-04-08 05:47 | PTCARENOTE ---
While this RN was in assisting another pt, this patient walked out of room and stood in doorway of patient nextdoor, stating 'What's that noise? Where is everyone?' RN quickly assisted pt back into his room and into bed. Informed pt that the 'noise'
he heard was his monitor beeping when he disconnected it. Pt pleasant but insists there was a 'different noise' he heard. Instructed pt to ring call gutierrez for assistance, bed alarm on and monitoring for pt safety.
--- NOTE | 2024-04-08 06:10 | W.PN.GI.CBS2 ---
Today's Communication / Plan
-
H/h remains stable. IV PPI 40 mg BiD, may advance diet as tolerated as without any signs suggestive of recurrent bleeding. Continue to hold eliquis for additional 48 hrs. Rest of care as outlined below.
Assessment / Plan
-
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 Found to have
symptomatic anemia and dark black stools concerning for melena over the past week. No prior history of GI bleeding in the past. Denies any prior EGD and admits last colonoscopy was 5 years ago for surveillance given personal history of CRC. Denies
any prior known liver disease and denies any significant EtOH abuse. Last dose of eliquis this AM on 04/05/2024. Otherwise, no other NSAIDs or other anti-platelet agents. HD-stable although soft BP with initial SBP 90s in ED. Labs notable for BBUN 15
and Garbage Truck Dispatcher 0.8. LFTs wnl. CBC with Hgb 6.2 (prev 13.3 on 01/2024) and plts 142. INR 1.67 (likely 2/2 DOAC rather than synthetic dysfunction). Etiology concerning for non-variceal UGIB resulting in symptomatic anemia and acute blood loss anemia.
Unfortunately, due to timing of eliquis earlier this AM unable to perform EGD as therapeutic interventions would be quite limited. Fortunately, remains HD-stable and responding to blood transfusions and fluid resuscitation without signs to suggest
brisk GI bleeding.
#Melena #UGIB 2/2
#Subepithelial Vessel c/f Dieulafoy's lesion (s/p eip/bicap)
#Well-Healed Gastric Ulcers #LA Grade B Esophagitis
#Symptomatic Anemia
#Acute Blood Loss Aenima
#A Fib (on eliquis, last dose 04/05)
#Hx of CRC (s/p resection, last colon 5-6 yrs ago)
- S/p EGD (for melena, acute post hemorrhagic anemia requiring 2 uPRBCs) 04/07/24: with a single, actively bleeding lesion was found in the third portion of the duodenum, vessel was subepithelial and injected with epi and treated with bicap for
hemostasis, tattooed adjacent area for marking in case of rebleeding; two, small non-bleeding gastric ulcers in pre-pyloric region (FC III) not biopsied given active GI bleeding found in duodenum, otherwise grossly normal stomach, LA grade B
esophagitis, otherwise normal
- Hgb remains stable 7.7 -> 7.6 -> 7.6 this AM without signs of recurrent GI bleeding. Suspect lesion was likely 2/2 to a Dieulafoy's lesion given submucosal underlying blood vessel in the third portion of the duodenum. This was tattooed for marking
in case of rebleeding. Fortunately since endoscopy therapy, his Hgb has remained stable without any recurrent bloody stools.
Recommendations:
- Tolerating CLD with stable H/h, may ADAT
- Trend Hgb with serial CBC, transfuse for goal Hgb > 7.0
- May start IV PPI 40 mg BiD
- Continue to hold eliquis for at least an additional 48 hrs given suspected Dieulafoy's lesion in duodenum. Okay to restart Monday evening (total of 72 hrs, 04/10- )
- Favor ongoing monitoring given high-risk bleeding lesion
- Melena to be expected over next 48 hrs given amount of blood in small bowel, discussed with patient this morning
- Ultimately, should have a repeat EGD in 8 - 12 weeks to assess healing of gastric ulcers. Can discuss colonoscopy as well at that time but would be as outpatient
- Avoidance of all NSAIDs
- Rest of care per primary team
GI team will continue to follow while inpatient.
Subjective
Subjective
Date of Service: April 08, 2024
- S/p EGD 04/07/24: with a single, actively bleeding lesion was found in the third portion of the duodenum, vessel was subepithelial and injected with epi and treated with bicap for hemostasis, tattooed adjacent area for marking in case of
rebleeding; two, small non-bleeding gastric ulcers in pre-pyloric region (FC III), otherwise grossly normal stomach, LA grade B esophagitis, otherwise normal
- Hgb remains stable 7.7 -> 7.6 -> 7.6 this AM
- Otherwise, no acute events overnight
Feeling well this morning, without any abdominal pain or nausea/vomiting. No melena or maroon colored stools since EGD or other concern for bloody/dark stools.
Objective
Data Reviewed
Laboratory Data:
Laboratory Results
04/08/24 04:56
04/07/24 08:18
Laboratory Results
PT 19.5 Sec (11.4-14.6) H 04/05/24 11:42
INR 1.67 04/05/24 11:42
APTT 39.0 Sec (23.4-35.0) H 04/05/24 11:42
Magnesium 1.9 mg/dl (1.6-2.3) 04/05/24 11:42
Total Bilirubin 0.3 mg/dl (0.2-1.3) 04/05/24 11:42
AST 24 U/L (17-59) 04/05/24 11:42
ALT 25 U/L (0-50) 04/05/24 11:42
Alkaline Phosphatase 82 U/L (38-126) 04/05/24 11:42
Vital Signs and I&O:
Vital Signs
Temp Pulse Resp BP Pulse Ox
98.2 F 96 18 109/75 96
04/08/24 03:00 04/08/24 04:00 04/08/24 04:00 04/08/24 04:00 04/08/24 00:00
I&O
04/06/24 04/07/24 04/08/24
07:59 06:59 06:59
Intake Total 1620 / 1620
Output Total 2100 / 2100
Balance -480 / -480
Physical Exam
Physical Exam
HEENT: Anicteric and Moist mucous membranes
Cardiology: Normal Sinus Rhythm
Pulmonary: Clear and Other (Normal WOB on room air)
GI: Soft, Non Distended and Non Tender
Extremities: No Edema
Neuro: Non Focal
[2024-04-08 08:06] LABS: Glucose - Point of Care 107 mg/dl (70-99)
[2024-04-08] MEDS: NOVOLOG FLEXPEN-LOW RESISTANCE SC ×2 (08:20→16:57)
[2024-04-08] MEDS: ZYRTEC 10 MG PO (08:24)
[2024-04-08] MEDS: TOPROL XL 50 MG PO (08:24)
[2024-04-08] MEDS: PROTONIX IV 40 MG IV ×2 (09:22→20:29)
[2024-04-08] MEDS: NSS (PRESERVATIVE FREE) 10 ML IV ×2 (09:23→20:29)
--- NOTE | 2024-04-08 10:29 | PTCARENOTE ---
Patient having multiple 2 second pauses on tele. Patient remains in a fib and is asymptomatic. HR in the 60's-70's. BP is 92/[address] Romo made aware. Care ongoing at this time.
[2024-04-08] MEDS: LANOXIN PO (10:57)
[2024-04-08 11:42] LABS: Glucose - Point of Care 155 mg/dl (70-99)
[2024-04-08] MEDS: NOVOLOG FLEXPEN-LOW RESISTANCE 1 UNITS SC (12:51)
--- NOTE | 2024-04-08 12:53 | CON.CAR ---
Addendum entered and electronically signed by Michael Cantu MD 04/08/24 15:00:
I saw and examined the patient.
The PER DIEM CLERK's note was reviewed and I agree with the note.
Comment: Agree with med changes made by medicine. Watch AFib rates as he becomes more active. For now no dig and lower dose metoprolol.
Original Note:
Consultation
Consultation Request
Date/Time Consultation Requested: 04/08/24 1129
Date/Time Consultation Performed: 04/08/24 1250
Requesting Provider: Dr. Romo
Performing Provider: Lilli ARNOLD for Dr. Cantu
Reason for Consultation: bradycardia
Medical History
-
Chief Complaint: abnormal hemoglobin, dizziness with falls
History of Present Illness:
79 y/o male with AFIB on Eliquis as OP, hypertension, dyslipidemia, DM2, and colon cancer who was having dizziness with falls (2-no syncope) and black stools for 1-2 weeks noted. His labs showed low hgb and he was sent to ER. HGB was 6.2 and he has
been transfused with 2 units PRBC's. He had an endoscopy which revealed a bleeding lesion, which was injected with epinephrine and cauterized. His Eliquis is being held until Monday. We are consulted for bradycardia/pauses on monitor. He is
feeling well and has no further dizziness. He denies any SOB. He is in good spirits and looks well and his of 46 years is at the bedside. His valve machine operator is Dr. Francisco Javier Villalobos. He has seen an cloth spreader screen printing and has plans for ablation next
month (May 16). Of note, BB initially held with low BP's, but resumed at lower dose.
Past Medical History
Past Medical History: Arrhythmias, Cancer, HTN, Hypercholesterolemia, NIDDM and Other (dementia)
Social History
Tobacco: Non-Smoker
Alcohol: Former
Family History
Family History: Reviewed & Not Pertinent
Allergies / Home Medications
Allergy/AdvReac Type Severity Reaction Status Date / Time
No Known Allergies Allergy Verified 04/05/24 09:36
�Medication �Instructions �Recorded �Confirmed �Type
apixaban 5 mg tablet (Eliquis) 5 mg PO BID Blood clot 06/04/21 04/05/24 History
prevention/tx
metoprolol succinate 100 mg 100 mg PO BID Heart 06/04/21 04/05/24 History
tablet,extended release 24 hr disease/condition
sertraline 25 mg tablet 50 mg PO HS Depression 06/04/21 04/05/24 History
atorvastatin 10 mg tablet (Lipitor) 10 mg PO HS High Cholesterol 04/05/24 04/05/24 History
cetirizine 10 mg tablet (Zyrtec) 10 mg PO DAILY Allergies 04/05/24 04/05/24 History
digoxin 62.5 mcg (0.0625 mg) tablet 62.5 mcg PO DAILY Heart 04/05/24 04/05/24 History
Disease/Condition
diphenhydramine 25 1 tab PO HSPRN PRN SLEEP 04/05/24 04/05/24 History
mg-acetaminophen 500 mg tablet
(Tylenol PM Extra Strength)
donepezil 10 mg tablet 10 mg PO HS Mental Health/Anxiety 04/05/24 04/05/24 History
furosemide 40 mg tablet (Lasix) 40 mg PO DAILY Fluid 04/05/24 04/05/24 History
Retention/Swelling
metformin 500 mg tablet 500 mg PO BID Diabetes 04/05/24 04/05/24 History
polyethylene glycol 3350 17 gram 17 g PO DAILY Constipation 04/05/24 04/05/24 History
oral powder packet (Miralax)
tamsulosin 0.4 mg capsule (Flomax) 0.4 mg PO QPM Urinary Issue 04/05/24 04/05/24 History
therapeutic multivitamin 1 tab PO DAILY Supplement 04/05/24 04/05/24 History
Review of Systems
-
History Source: Patient
All other systems: Negative unless noted
Abdomen/GI: Black Stools
Neurological: Dizzy
Physical Exam
Vital Signs
Temp Pulse Resp BP Pulse Ox
97.6 F 61 18 111/59 98
04/08/24 11:35 04/08/24 12:00 04/08/24 12:00 04/08/24 12:00 04/08/24 12:00
Lab Results
04/08/24 04:56
04/07/24 08:18
Physical Exam
General: Well Developed, Well Nourished and No Apparent Distress
HEENT: Normocephalic and Anicteric
Respiratory: Crackles (mild right base)
Cardiac: Irregular Rhythm
Musculoskeletal: No Edema
Skin: Warm and Dry
Neuro: AO x 3
Psych: Calm
Impression / Plan
-
Acute anemia 2/2 upper GIB:
-severe with hgb 6.2
-Eliquis to be held until Monday
-s/p 2 units PRBC's
-s/p injection and cauterization of bleeding lesion as noted in detail above
AFIB, persistent:
-on metoprolol 100 mg PO BID as OP and digoxin 62.5 mcg PO daily- rates on slow end currently. No severe bradycardia and no prolonged or symptomatic pauses (<2.5 seconds). Digoxin is held and metoprolol is reduced. Follow telemetry and adjust as
appropriate this admit. Will leave him on current dosing for now.
-[id number] score is 4 for age, HTN, DM. Eliquis held with acute bleed and likely to be resumed Monday per GI.
LE edema:
-denies hx CHF
-takes Lasix daily
-held currently- likely resume soon, but denies SOB and has no edema currently
HTN:
-BP on low end with acute illness
-monitor with adjusted meds
Data Reviewed
-
EKG: Tracing Personally Visualized and interpreted (AFIB 68 BPM, nonspecific t abnormality)
Medical Tests (Nuc Med, Echo etc): Report Reviewed by me (endoscopy procedure 04/07/24: A single, actively bleeding lesion was found in the 3rd portion of the duodenum. The vessel was subepithelial and within an area of lymphangiectasia. S/p
epinephrine injection and cautery. 2, small non-bleeding gastric ulcers with a clean ulcer base...) and Other (within the pre-pyloric region. Mild erythematous mucosa in the gastric body. LA Grade B esophagitis in distal esophagus.)
Labs: Labs Reviewed by me
--- NOTE | 2024-04-08 13:19 | W.PN.HOSP.TC ---
Today's Communication/Plan
-
Monitor vital signs
see plan
Hold digoxin, decrease metoprolol
Cardiology to evaluate
Monitor on telemetry
Monitor hemoglobin
Assessment / Plan
Assessment / Plan
Gen-AAOx3, NAD
HEENT-NC, AT, anicteric, clear oral mm
Neck-supple
CV-reg, no M, +S1/S2
Lungs-clear B/L
Abd-soft, NT, ND
Ext-no edema
Musculoskeletal-no cyanosis, clubbing
Skin-warm and dry
Neuro-grossly non-focal
Psych-calm, cooperative
Acute GI bleed -presentation with melena for at least a week. Denies hematochezia. Hypotensive on arrival now improved. GI bleed exacerbated by anticoagulation with Eliquis. Eliquis on hold in preparation for EGD on Monday. No bowel movements
in the hospital so far.
Status post EGD 04/07 with single, actively bleeding lesion in the third portion of duodenum. Patient is currently on PPI. Diet advanced to full liquids. If continues to improve then will advance to regular diet. Per gastroenterology hold Eliquis
for another 48-hours
persistent Atrial fibrillation -hold Eliquis for GI bleed. has been having periods of pauses with about 2sec. cardiology consulted. Follows up with [facility] cardiology. hold digoxin for now. dec metoprolol to 25mg BID with holding parameters
Acute blood loss anemia -due to GI bleed. Transfused 2 units of blood. Hemoglobin stable, 7.6 today. Continue to monitor. Baseline hemoglobin was 13 in January of this year.
Leukopenia -WBC 3.9. Unclear etiology. Monitor for now. ANC 2300.
Essential hypertension -stable.
Hyperlipidemia -on atorvastatin.
Mild cognitive impairment -on donepezil.
History of colon cancer -underwent hemicolectomy.
BPH
Depression
DM 2 without hyperglycemia - Hemoglobin A1c 4.8%. Likely can permanently discontinue metformin.
Full code
I spent a total of 52 minutes with the patient or on the floor. More than 50% of this time involved counseling and coordination of care.
Anticipated Discharge: > 48 hours
Subjective/Interval History
-
Date of Service: April 08, 2024
denies pain
Objective Data
-
Labs:
Laboratory Results
04/08/24
04:56
WBC 5.1
Hgb 7.6 L
Hct 23.4 L
Plt Count 131
Vital Signs:
Vital Signs
Temp Pulse Resp BP Pulse Ox
97.6 F 61 18 111/59 98
04/08/24 11:35 04/08/24 12:00 04/08/24 12:00 04/08/24 12:00 04/08/24 12:00
I&O
04/07/24 04/08/24 04/09/24
06:59 06:59 06:59
Intake Total 1620 / 1620 480 / 480
Output Total 2100 / 2100 200 / 200
Balance -480 / -480 280 / 280
--- NOTE | 2024-04-08 16:40 | PTCARENOTE ---
Patient AOx3, forgetful at times. Bed alarm and chair alarm in place and audible. A fib on the monitor with frequent [address] Romo and cardiology team aware. Patient asymptomatic. Patient on RA with SpO2 greater than 92%. Voiding yellow
urine in urinal. Abdomen is soft and has positive bowel sounds. Denies pain throughout shift. Patient ambulated halls and in chair with assist x1. Patient advanced to full liquid diet and tolerating well. Call gutierrez within reach, bed in lowest
position, and wheels locked.
[2024-04-08] MEDS: FLOMAX 0.4 MG PO (17:00)
[2024-04-08 17:03] LABS: Glucose - Point of Care 117 mg/dl (70-99)
[2024-04-08] MEDS: ZOLOFT 50 MG PO (20:28)
[2024-04-08] MEDS: ARICEPT 10 MG PO (20:28)
[2024-04-08] MEDS: TOPROL XL 25 MG PO (20:28)
[2024-04-08] MEDS: LIPITOR 10 MG PO (20:28)
[2024-04-08 21:49] LABS: Glucose - Point of Care 97 mg/dl (70-99)
[2024-04-09] VITALS (28 sets, daily range): BP systolic 92–141; BP diastolic 63–98; PULSE 80–108; BMI 25.1
[2024-04-09] MEDS: TYLENOL 650 MG PO ×2 (04:38→21:02)
[2024-04-09 05:23] LABS: % Basophils 0.8 % (0-2); % Eosinophils 5.8 % (0-6); % Immature Granulocytes 0.5 % (0-0.5); % Lymphocytes 28.3 % (20.5-51.1); % Monocytes 10.3 % (1.7-9.3); % Neutrophils 54.3 % (42.2-75.2); Absolute Eosinophils 0.2 10^3/uL (0-0.7); Absolute Lymphocytes 1.1 10^3/uL (1.2-3.4); Absolute Monocytes 0.4 10^3/uL (0.1-0.6); Absolute Neutrophils 2.2 10^3/uL (1.4-6.5); Hematocrit 22.5 % (39.0-52.0); Hemoglobin 7.3 g/dL (13.0-18.0); Mean Corp Hgb Conc. 32.4 g/dL (33.0-37.0); Mean Corpuscular Hgb 28.9 pg (27.0-31.0); Mean Corpuscular Volume 88.9 fL (80.0-94.0); Mean Platelet Volume 9.7 fL (7.4-10.4); Nucleated Red Blood Cells % 0 % (-); Platelet Count 148 10^3/uL (130-400); Red Blood Cell Count 2.53 10^6/uL (4.70-6.10); Red Cell Dist. Width 15.6 % (11.5-14.5)
--- NOTE | 2024-04-09 05:56 | W.PN.GI.CBS2 ---
Today's Communication / Plan
-
Agree with 1uPRBC given Hgb 7.3, otherwise no signs to suggest recurrent GI bleeding since EGD on 04/07. Favor restarting a/c tomorrow evening. Rest of care as outlined below. GI team will sign-off, please call back with any questions or concerns.
Assessment / Plan
-
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 Found to have
symptomatic anemia and dark black stools concerning for melena over the past week. No prior history of GI bleeding in the past. Denies any prior EGD and admits last colonoscopy was 5 years ago for surveillance given personal history of CRC. Denies
any prior known liver disease and denies any significant EtOH abuse. Last dose of eliquis this AM on 04/05/2024. Otherwise, no other NSAIDs or other anti-platelet agents. HD-stable although soft BP with initial SBP 90s in ED. Labs notable for BBUN 15
and Home Health Billing Specialist 0.8. LFTs wnl. CBC with Hgb 6.2 (prev 13.3 on 01/2024) and plts 142. INR 1.67 (likely 2/2 DOAC rather than synthetic dysfunction). Etiology concerning for non-variceal UGIB resulting in symptomatic anemia and acute blood loss anemia.
Unfortunately, due to timing of eliquis earlier this AM unable to perform EGD as therapeutic interventions would be quite limited. Fortunately, remains HD-stable and responding to blood transfusions and fluid resuscitation without signs to suggest
brisk GI bleeding.
#Melena #UGIB 2/2
#Subepithelial Vessel c/f Dieulafoy's lesion (s/p eip/bicap)
#Well-Healed Gastric Ulcers #LA Grade B Esophagitis
#Symptomatic Anemia
#Acute Blood Loss Aenima
#A Fib (on eliquis, last dose 04/05)
#Hx of CRC (s/p resection, last colon 5-6 yrs ago)
- S/p EGD (for melena, acute post hemorrhagic anemia requiring 2 uPRBCs) 04/07/24: with a single, actively bleeding lesion was found in the third portion of the duodenum, vessel was subepithelial and injected with epi and treated with bicap for
hemostasis, tattooed adjacent area for marking in case of rebleeding; two, small non-bleeding gastric ulcers in pre-pyloric region (FC III) not biopsied given active GI bleeding found in duodenum, otherwise grossly normal stomach, LA grade B
esophagitis, otherwise normal
- Hgb remains stable 7.7 -> 7.6 -> 7.6 -> 7.3 this AM without signs of recurrent GI bleeding. Suspect lesion was likely 2/2 to a Dieulafoy's lesion given submucosal underlying blood vessel in the third portion of the duodenum. This was tattooed for
marking in case of rebleeding. Fortunately since endoscopy therapy, his Hgb has remained stable without any recurrent bloody stools.
Recommendations:
- Tolerating CLD with stable H/h, may ADAT
- Ordered 1 uPRBC for Hgb 7.3, f/u post-transfusion CBC
- Otherwise no signs to suggest recurrent GI bleeding
- Continue IV PPI 40 mg BiD
- Favor restarting Eliquis tomorrow evening (total of 72 hrs, 04/10- ) if okay by Cardiology
- Ultimately, should have a repeat EGD in 8 - 12 weeks to assess healing of gastric ulcers. Can discuss colonoscopy as well at that time but would be as outpatient
- Avoidance of all NSAIDs
- Rest of care per primary team
Discussed with primary internal medicine team this afternoon.
GI team will sign-off. Please call back with any questions or concerns.
Subjective
Subjective
Date of Service: April 09, 2024
- Brown stool yesterday morning
- Hgb stable 7.6 -> 7.6 -> 7.3
- Otherwise, no acute events overnight
Resting comfortably, had one brown bowel movement yesterday without any dark black or bloody stools. No other abdominal pain, nausea or vomiting.
Objective
Data Reviewed
Laboratory Data:
Laboratory Results
04/09/24 04:37
04/07/24 08:18
Laboratory Results
PT 19.5 Sec (11.4-14.6) H 04/05/24 11:42
INR 1.67 04/05/24 11:42
APTT 39.0 Sec (23.4-35.0) H 04/05/24 11:42
Magnesium 1.9 mg/dl (1.6-2.3) 04/05/24 11:42
Total Bilirubin 0.3 mg/dl (0.2-1.3) 04/05/24 11:42
AST 24 U/L (17-59) 04/05/24 11:42
ALT 25 U/L (0-50) 04/05/24 11:42
Alkaline Phosphatase 82 U/L (38-126) 04/05/24 11:42
Vital Signs and I&O:
Vital Signs
Temp Pulse Resp BP Pulse Ox
98.0 F 103 25 92/65 99
04/09/24 03:00 04/09/24 04:07 04/09/24 04:07 04/09/24 04:07 04/09/24 04:05
I&O
04/07/24 04/08/24 04/09/24
06:59 06:59 06:59
Intake Total 1620 / 1620 480 / 480
Output Total 2100 / 2100 1450 / 1450
Balance -480 / -480 -970 / -970
Physical Exam
Physical Exam
HEENT: Anicteric and Moist mucous membranes
Cardiology: Other (RR on tele)
Pulmonary: Clear
GI: Soft, Non Distended and Non Tender
Extremities: No Edema
Neuro: Non Focal
--- NOTE | 2024-04-09 06:00 | PTCARENOTE ---
Caring for patient overnight. aaox3, forgetful. C/o pain in L knee, tylenol ordered. Afib. NO bm's overnight. hgb dropped to 7.3, pt pale & orthostatic, denies any dizziness. No other issues overnight. Will monitor.
[2024-04-09 08:09] LABS: Glucose - Point of Care 112 mg/dl (70-99)
--- NOTE | 2024-04-09 08:22 | W.PN.CD ---
Today's Communication / Plan
-
Cont current meds
May need to be uptitrated as he becomes more active and once out of hospital
Plans to resume Eliquis tomorrow, Monday
We will sign off, please call with questions/concerns. He knows to call his assistant attorney general for an appt once d/c.
Impression / Plan
-
Acute anemia 2/2 upper GIB:
-severe with hgb 6.2
-Eliquis to be held until Monday
-s/p 2 units PRBC's
-s/p injection and cauterization of bleeding lesion as noted in detail above
AFIB, persistent:
-on metoprolol 100 mg PO BID as OP and digoxin 62.5 mcg PO daily- rates on slow end currently. No severe bradycardia and no prolonged or symptomatic pauses (<2.5 seconds).
- Digoxin is held and metoprolol is reduced.
- Follow telemetry and adjust as appropriate this admit.
- will leave him on current dosing likely need to increase metop as he becomes more active
-[id number] score is 4 for age, HTN, DM. Eliquis held with acute bleed and likely to be resumed Monday per GI.
LE edema:
-denies hx CHF
-takes Lasix daily
-held currently- likely resume soon, but denies SOB and has no edema currently
HTN:
-BP on low end with acute illness
-monitor with adjusted meds
Subjective: Feels well no new complaints
Physical Exam
Vital Signs/Labs
Vital Signs
Temp Pulse Resp BP Pulse Ox
98.0 F 82 15 131/73 100
04/09/24 03:00 04/09/24 06:00 04/09/24 06:00 04/09/24 06:00 04/09/24 06:00
04/08/24 04/09/24 04/10/24
06:59 06:59 06:59
Actual Weight 182 lb 15.739 oz 185 lb 2 oz
04/09/24 04:37
PT 19.5 Sec (11.4-14.6) H 04/05/24 11:42
INR 1.67 04/05/24 11:42
APTT 39.0 Sec (23.4-35.0) H 04/05/24 11:42
Magnesium 1.9 mg/dl (1.6-2.3) 04/05/24 11:42
Physical Exam
Constitutional: No acute distress and Comfortable
EENT: Anicteric
Cardiovascular: Pedal edema is absent and Rhythm/rate is irregular
Respiratory: Respiratory effort normal and Lungs clear to auscul.
GI: Soft
Neuro/Psych: Alert and Oriented
Data Reviewed
-
Date of Service: April 09, 2024
Medical Decision Making: Reviewed Test Results
EKG: Tracing Personally Visualized and interpreted (af)
Labs: Labs Reviewed by me
[2024-04-09] MEDS: NOVOLOG FLEXPEN-LOW RESISTANCE SC ×3 (08:34→17:47)
[2024-04-09] MEDS: ZYRTEC 10 MG PO (08:35)
[2024-04-09] MEDS: TOPROL XL 25 MG PO ×2 (08:36→21:01)
[2024-04-09 09:24] LABS: Blood Urea Nitrogen 7 mg/dl (9-20); Calcium 8.9 mg/dl (8.4-10.2); Carbon Dioxide 27 mmol/L (22-30); Chloride 107 mmol/L (98-107); Estimated Creatinine Clearance 91 ml/min; Glucose 126 mg/dl (70-99); Potassium 3.9 mmol/L (3.5-5.1); Sodium 140 mmol/L (135-145); eGFR > 60.00
[2024-04-09] MEDS: PROTONIX IV 40 MG IV ×2 (11:04→21:02)
[2024-04-09] MEDS: NSS (PRESERVATIVE FREE) 10 ML IV ×2 (11:05→21:02)
[2024-04-09 11:40] LABS: Glucose - Point of Care 147 mg/dl (70-99)
--- NOTE | 2024-04-09 11:52 | W.PN.HOSP.TC ---
Today's Communication/Plan
-
Monitor vital signs
see plan
Continue with fulls for now
PPI
holding eliquis per GI
Transfuse 1 unit PRBC today
Continue with metoprolol
Assessment / Plan
Assessment / Plan
Gen-AAOx3, NAD
HEENT-NC, AT, anicteric, clear oral mm
Neck-supple
CV-reg, no M, +S1/S2
Lungs-clear B/L
Abd-soft, NT, ND
Ext-no edema
Musculoskeletal-no edema
Neuro-grossly non-focal
Psych-calm, cooperative
Acute GI bleed -presentation with melena for at least a week. Denies hematochezia. Hypotensive on arrival now improved. GI bleed exacerbated by anticoagulation with Eliquis. Eliquis on hold.
Status post EGD 04/07 with single, actively bleeding lesion in the third portion of duodenum. Patient is currently on PPI. cw full liquids. If continues to improve then will advance to regular diet. Per gastroenterology hold Eliquis for another
24-hours
persistent Atrial fibrillation -hold Eliquis for GI bleed. has been having periods of pauses with about 2sec. cardiology following. Now pauses improving. follows up with [facility] cardiology. hold digoxin for now. dec metoprolol to 25mg BID with
holding parameters
Acute blood loss anemia -due to GI bleed. Transfused 2 units of blood. Hemoglobin stable, 7.3 today. Transfuse 1 unit PRBC 04/09 continue to monitor. Baseline hemoglobin was 13 in January of this year.
Leukopenia -Unclear etiology. Monitor for now.
Essential hypertension -stable.
Hyperlipidemia -on atorvastatin.
Mild cognitive impairment -on donepezil.
History of colon cancer -underwent hemicolectomy.
BPH
Depression
DM 2 without hyperglycemia - Hemoglobin A1c 4.8%. Likely can permanently discontinue metformin.
Full code
I spent a total of 51 minutes with the patient or on the floor. More than 50% of this time involved counseling and coordination of care.
Anticipated Discharge: 24 - 48 hours
Subjective/Interval History
-
Date of Service: April 09, 2024
denies pain
Objective Data
-
Labs:
Laboratory Results
04/09/24 04/09/24
04:37 08:32
WBC 4.0 L
Hgb 7.3 L
Hct 22.5 L
Plt Count 148
Sodium 140
Potassium 3.9
Chloride 107
Carbon Dioxide 27
BUN 7 L
Creatinine 0.7
Glucose 126 H
Calcium 8.9
Vital Signs:
Vital Signs
Temp Pulse Resp BP Pulse Ox
97.6 F 73 19 117/65 95
04/09/24 11:47 04/09/24 11:15 04/09/24 11:15 04/09/24 11:15 04/09/24 11:28
I&O
04/08/24 04/09/24 04/10/24
06:59 06:59 06:59
Intake Total 1620 / 1620 480 / 480 0 / 0
Output Total 2100 / 2100 1575 / 1575 250 / 250
Balance -480 / -480 -1095 / -1095 -250 / -250
[2024-04-09 16:06] LABS: Glucose - Point of Care 145 mg/dl (70-99)
[2024-04-09] MEDS: FLOMAX 0.4 MG PO (17:48)
[2024-04-09] MEDS: LIPITOR 10 MG PO (21:00)
[2024-04-09] MEDS: MELATONIN 3 MG PO (21:01)
[2024-04-09] MEDS: ZOLOFT 50 MG PO (21:01)
[2024-04-09] MEDS: ARICEPT 10 MG PO (21:01)
[2024-04-09 21:24] LABS: Glucose - Point of Care 117 mg/dl (70-99)
[2024-04-10] VITALS (16 sets, daily range): BP systolic 106–140; BP diastolic 63–87; PULSE 88–107; O2SAT 98; BMI 25.4
--- NOTE | 2024-04-10 02:04 | PTCARENOTE ---
Pt ortho static vitals showed negative, Pt did not feel dizzy when standing. Pt having some pain in L knee. Per Pt the left knee is what he hit in previous fall. Pt able to make needs known. Pt AAOx3 forgetful at times. Call gutierrez within reach. Bed
alarm on.
[2024-04-10 04:56] LABS: % Basophils 0.5 % (0-2); % Immature Granulocytes 0.2 % (0-0.5); % Neutrophils 61.3 % (42.2-75.2); Absolute Eosinophils 0.2 10^3/uL (0-0.7); Absolute Monocytes 0.5 10^3/uL (0.1-0.6); Absolute Neutrophils 2.6 10^3/uL (1.4-6.5); Hematocrit 26.1 % (39.0-52.0); Hemoglobin 8.5 g/dL (13.0-18.0); Mean Corp Hgb Conc. 32.6 g/dL (33.0-37.0); Mean Corpuscular Hgb 29.5 pg (27.0-31.0); Mean Corpuscular Volume 90.6 fL (80.0-94.0); Mean Platelet Volume 9.6 fL (7.4-10.4); Nucleated Red Blood Cells % 0 % (-); Platelet Count 127 10^3/uL (130-400); Red Blood Cell Count 2.88 10^6/uL (4.70-6.10); Red Cell Dist. Width 15.5 % (11.5-14.5); White Blood Cell Count 4.3 10^3/uL (4.8-10.8)
[2024-04-10 05:26] LABS: Blood Urea Nitrogen 6 mg/dl (9-20); Calcium 8.9 mg/dl (8.4-10.2); Carbon Dioxide 26 mmol/L (22-30); Chloride 108 mmol/L (98-107); Estimated Creatinine Clearance 91 ml/min; Glucose 100 mg/dl (70-99); Potassium 4.1 mmol/L (3.5-5.1); Sodium 143 mmol/L (135-145); eGFR > 60.00
[2024-04-10 07:48] LABS: Glucose - Point of Care 100 mg/dl (70-99)
[2024-04-10] MEDS: NOVOLOG FLEXPEN-LOW RESISTANCE SC ×3 (08:36→18:08)
[2024-04-10] MEDS: ZYRTEC 10 MG PO (08:36)
[2024-04-10] MEDS: TOPROL XL 25 MG PO ×2 (08:36→20:48)
[2024-04-10] MEDS: PROTONIX IV 40 MG IV ×2 (11:12→20:52)
[2024-04-10] MEDS: LANOXIN 62.5 MCG PO (11:12)
[2024-04-10] MEDS: NSS (PRESERVATIVE FREE) 10 ML IV ×2 (11:12→20:51)
[2024-04-10 12:05] LABS: Glucose - Point of Care 127 mg/dl (70-99)
[2024-04-10] MEDS: LIDOCAINE 4% PATCH 1 PATCH TOPICAL (13:00)
[2024-04-10] MEDS: TYLENOL 650 MG PO ×2 (13:01→20:59)
--- NOTE | 2024-04-10 13:03 | W.PN.HOSP.TC ---
Today's Communication/Plan
-
Monitor vital signs
see plan
Restart digoxin
Continue metoprolol
Advance diet to regular
Monitor hemoglobin
Discharge planning
Assessment / Plan
Assessment / Plan
Gen-AAOx3, NAD
HEENT-NC, AT, anicteric, clear oral mm
Neck-supple
CV-reg, no M, +S1/S2
Lungs-clear B/L
Abd-soft, NT, ND
Ext-no edema
Musculoskeletal-no edema
Neuro-grossly non-focal
Psych-calm, cooperative
Acute GI bleed -presentation with melena for at least a week. Denies hematochezia. Hypotensive on arrival now improved. GI bleed exacerbated by anticoagulation with Eliquis.
Status post EGD 04/07 with single, actively bleeding lesion in the third portion of duodenum. Patient is currently on PPI. Advance diet to regular. Restart Eliquis tonight per GI recommendation
persistent Atrial fibrillation -hold Eliquis for GI bleed. has been having periods of pauses with about 2sec. cardiology following. Now pauses improving. follows up with [facility] cardiology. Patient heart rate today appears to be increasing,
restart digoxin. metoprolol to 25mg BID with holding parameters
Acute blood loss anemia -due to GI bleed. Transfused 2 units of blood. Hemoglobin 7.3 04/09, s/p 1 unit prrbc; hgb 8.5 today . Baseline hemoglobin was 13 in January of this year.
Leukopenia -Unclear etiology. Monitor for now.
Essential hypertension -stable.
Hyperlipidemia -on atorvastatin.
Mild cognitive impairment -on donepezil.
History of colon cancer -underwent hemicolectomy.
BPH
Depression
DM 2 without hyperglycemia - Hemoglobin A1c 4.8%. Likely can permanently discontinue metformin.
Full code
I spent a total of 52 minutes with the patient or on the floor. More than 50% of this time involved counseling and coordination of care.
Anticipated Discharge: Within 24 hours
Subjective/Interval History
-
Date of Service: April 10, 2024
denies pain
Objective Data
-
Labs:
Laboratory Results
04/10/24
04:46
WBC 4.3 L
Hgb 8.5 L
Hct 26.1 L
Plt Count 127 L
Sodium 143
Potassium 4.1
Chloride 108 H
Carbon Dioxide 26
BUN 6 L
Creatinine 0.7
Glucose 100 H
Calcium 8.9
Vital Signs:
Vital Signs
Temp Pulse Resp BP Pulse Ox
98.4 F 94 19 130/80 95
04/10/24 07:55 04/10/24 08:36 04/10/24 06:01 04/10/24 08:36 04/10/24 08:41
I&O
04/09/24 04/10/24 04/11/24
06:59 06:59 06:59
Intake Total 480 / 480 740 / 740
Output Total 1575 / 1575 1750 / 1750 125 / 125
Balance -1095 / -1095 -1010 / -1010 -125 / -125
--- NOTE | 2024-04-10 13:25 | PTCARENOTE ---
Pt refusing orthostatic BP's at this time.
--- NOTE | 2024-04-10 14:22 | CM ---
Addendum entered by Ayde Benoit RN 04/10/24 14:32:
Noting patient on 2L O2 today -watch for home O2 needs.
Original Note:
Patient with Dx GIB, anemia, A fib. PT/OT recommend HH.
Met with patient yesterday who agreed to VN for SN/PT/OT and chooses [facility]N that he had service with previously. Patient says his will agree to this d/c plan.
[facility] referral placed. VN order obtained.
Plan home with [facility].
[2024-04-10 18:01] LABS: Glucose - Point of Care 132 mg/dl (70-99)
[2024-04-10] MEDS: FLOMAX 0.4 MG PO (18:27)
--- NOTE | 2024-04-10 18:39 | PTCARENOTE ---
No acute events throughout the shift. Assessment as documented. Bed alarm in place for safety. Able to make needs known, call gutierrez in reach.
--- NOTE | 2024-04-10 20:00 | PTCARENOTE ---
Cannot verify accuracy of captured vital signs prior to 1999.
[2024-04-10] MEDS: MELATONIN 3 MG PO (20:48)
[2024-04-10] MEDS: ELIQUIS 5 MG PO (20:50)
[2024-04-10] MEDS: ARICEPT 10 MG PO (20:51)
[2024-04-10] MEDS: LIPITOR 10 MG PO (20:51)
[2024-04-10] MEDS: TYLENOL PO (20:51)
[2024-04-10] MEDS: ZOLOFT 50 MG PO (20:51)
[2024-04-10 22:24] LABS: Glucose - Point of Care 149 mg/dl (70-99)
[2024-04-11] VITALS (8 sets, daily range): BP systolic 92–125; BP diastolic 61–89; PULSE 90–100; BMI 25.2
[2024-04-11 05:16] LABS: % Basophils 0.4 % (0-2); % Eosinophils 3.9 % (0-6); % Immature Granulocytes 0.2 % (0-0.5); % Lymphocytes 22.3 % (20.5-51.1); % Monocytes 14.4 % (1.7-9.3); % Neutrophils 58.8 % (42.2-75.2); Absolute Eosinophils 0.2 10^3/uL (0-0.7); Absolute Lymphocytes 1.1 10^3/uL (1.2-3.4); Absolute Monocytes 0.7 10^3/uL (0.1-0.6); Absolute Neutrophils 2.9 10^3/uL (1.4-6.5); Hematocrit 25.6 % (39.0-52.0); Hemoglobin 8.5 g/dL (13.0-18.0); Mean Corp Hgb Conc. 33.2 g/dL (33.0-37.0); Mean Corpuscular Hgb 30.1 pg (27.0-31.0); Mean Corpuscular Volume 90.8 fL (80.0-94.0); Mean Platelet Volume 9.6 fL (7.4-10.4); Nucleated Red Blood Cells % 0 % (-); Platelet Count 141 10^3/uL (130-400); Red Blood Cell Count 2.82 10^6/uL (4.70-6.10); Red Cell Dist. Width 15.3 % (11.5-14.5); White Blood Cell Count 4.9 10^3/uL (4.8-10.8)
[2024-04-11 05:39] LABS: Blood Urea Nitrogen 8 mg/dl (9-20); Calcium 8.8 mg/dl (8.4-10.2); Carbon Dioxide 27 mmol/L (22-30); Chloride 106 mmol/L (98-107); Estimated Creatinine Clearance 91 ml/min; Glucose 100 mg/dl (70-99); Potassium 3.9 mmol/L (3.5-5.1); Sodium 142 mmol/L (135-145); eGFR > 60.00
[2024-04-11 07:16] LABS: Glucose - Point of Care 95 mg/dl (70-99)
[2024-04-11] MEDS: NOVOLOG FLEXPEN-LOW RESISTANCE SC ×2 (08:47→12:29)
[2024-04-11] MEDS: ELIQUIS 5 MG PO (08:48)
[2024-04-11] MEDS: TYLENOL 650 MG PO (08:48)
[2024-04-11] MEDS: LIDOCAINE 4% PATCH 1 PATCH TOPICAL (08:49)
[2024-04-11] MEDS: TOPROL XL 25 MG PO (08:49)
[2024-04-11] MEDS: ZYRTEC 10 MG PO (08:49)
[2024-04-11] MEDS: NSS (PRESERVATIVE FREE) 10 ML IV (08:50)
[2024-04-11] MEDS: PROTONIX IV 40 MG IV (08:50)
--- NOTE | 2024-04-11 11:44 | W.PN.HOSP.TC ---
Today's Communication/Plan
-
Monitor vital signs see plan
PPI
Hemoglobin 8.5, no signs of bleeding
Tolerating Eliquis
Discharge today
Time of discharge 38 minutes
Assessment / Plan
Assessment / Plan
Gen-AAOx3, NAD
HEENT-NC, AT, anicteric, clear oral mm
Neck-supple
CV-reg, no M, +S1/S2
Lungs-clear B/L
Abd-soft, NT, ND
Ext-no edema
Musculoskeletal-no edema
Neuro-grossly non-focal
Psych-calm, cooperative
Acute GI bleed -presentation with melena for at least a week. Denies hematochezia. Hypotensive on arrival now improved. GI bleed exacerbated by anticoagulation with Eliquis.
Status post EGD 04/07 with single, actively bleeding lesion in the third portion of duodenum. Patient is currently on PPI. Advance diet to regular. Eliquis restarted per GI recommendation
persistent Atrial fibrillation - has been having periods of pauses with about 2sec. cardiology following. Now pauses improving. follows up with [facility] cardiology. Digoxin was restarted due to elevated heart rate.. metoprolol to 25mg BID with
holding parameters. Patient and family aware to increase metoprolol if needed
Acute blood loss anemia -due to GI bleed. Transfused 2 units of blood. Hemoglobin 7.3 04/09, s/p 1 unit prrbc; hgb 8.5 today . Baseline hemoglobin was 13 in January of this year.
Leukopenia -Unclear etiology. Monitor for now.
Essential hypertension -stable.
Hyperlipidemia -on atorvastatin.
Mild cognitive impairment -on donepezil.
History of colon cancer -underwent hemicolectomy.
BPH
Depression
DM 2 without hyperglycemia - Hemoglobin A1c 4.8%. Likely can permanently discontinue metformin.
Full code
Anticipated Discharge: Today
Subjective/Interval History
-
Date of Service: April 11, 2024
Denies pain
Objective Data
-
Labs:
Laboratory Results
04/11/24
05:05
WBC 4.9
Hgb 8.5 L
Hct 25.6 L
Plt Count 141
Sodium 142
Potassium 3.9
Chloride 106
Carbon Dioxide 27
BUN 8 L
Creatinine 0.7
Glucose 100 H
Calcium 8.8
Vital Signs:
Vital Signs
Temp Pulse Resp BP Pulse Ox
98.0 F 99 24 107/69 96
04/11/24 07:27 04/11/24 10:00 04/11/24 10:00 04/11/24 10:00 04/11/24 10:00
I&O
04/10/24 04/11/24 04/12/24
06:59 06:59 06:59
Intake Total 740 / 740 300 / 300
Output Total 1750 / 1750 650 / 650
Balance -1010 / -1010 -650 / -650 300 / 300
--- NOTE | 2024-04-11 11:50 | W.DCSUMMARY ---
Discharge Summary
Discharge Data
Date of Admission: 04/05/24
Date of Discharge: 04/11/24
-
Pending Results: No
Hospital Course
79-year-old male with past medical history of essential hypertension, hyperlipidemia, mild, intermittent, colon cancer status post colectomy, BPH, depression, type 2 diabetes mellitus, persistent atrial fibrillation came to the hospital with acute
GI bleed. Patient was seen by GI throughout hospitalization. He underwent EGD which showed a single actively bleeding lesion in the third portion of the duodenum. He was initially on PPI drip which was later transitioned to oral PPI prior to
discharge. He was able to tolerate regular diet prior to discharge. While he was hospitalized he also required blood transfusion. During his hospitalization he also had few periods of paralysis for which she was seen by cardiology. His
metoprolol was decreased on this hospitalization and he was instructed to follow-up closely with his manager financial services outpatient. He did not require any surgical intervention for his bradycardia and over time improved with decreasing metoprolol. He
was also evaluated by physical therapy who recommended home health. Once his symptoms continue to improve, he was then discharged home with instructions to follow-up with all his physicians outpatient.
Discharge Plan
-
Patient Disposition: Home with Home Care
Discharge Diagnosis/Procedures: Acute gastrointestinal bleed status post EGD with active bleeding lesion in duodenum
Persistent atrial fibrillation with periods of bradycardia
Acute blood loss anemia
Leukopenia
Diet: As tolerated
Activity: As tolerated
Driving Restrictions: As prior to admission
Bathing Restrictions: None
Blood Work: CBC next week with primary care provider
Activity Restrictions/Additional Instructions:
Please follow-up with your manager financial services within a week outpatient
Referrals:
Hung Oneal CRNP [Family Provider] - in less than 1 week
Kwame Hooks DO [Active] - in one week
Prescriptions:
New
acetaminophen 325 mg Tablet
650 mg PO Q6HPRN PRN (Reason: mild pain/ fever>100.5F) Qty: 0 0RF
lidocaine 4 % Adhesive Patch,Medicated
1 patch topical DAILY Qty: 30 0RF
pantoprazole 40 mg Tablet,Delayed Release (Dr/Ec)
40 mg PO BID Qty: 60 0RF
metoprolol succinate 25 mg Tablet Extended Release 24 Hr
25 mg PO BID Qty: 60 0RF
Continued
sertraline 25 MG tablet
50 mg PO HS
Eliquis 5 MG tablet
5 mg PO BID
furosemide [Lasix] 40 mg Tablet
40 mg PO DAILY
metformin 500 mg Tablet
500 mg PO BID
cetirizine [Zyrtec] 10 mg Tablet
10 mg PO DAILY
atorvastatin [Lipitor] 10 mg Tablet
10 mg PO HS
donepezil 10 mg Tablet
10 mg PO HS
therapeutic multivitamin Tablet
1 tab PO DAILY
tamsulosin [Flomax] 0.4 mg Capsule
0.4 mg PO QPM
digoxin 62.5 mcg (0.0625 mg) Tablet
62.5 mcg PO DAILY
polyethylene glycol 3350 [Miralax] 17 gram Powder In Packet
17 g PO DAILY
diphenhydramine-acetaminophen [Tylenol PM Extra Strength] 25-500 mg Tablet
1 tab PO HSPRN PRN (Reason: SLEEP)
Discontinued
metoprolol succinate 100 MG tablet extended release 24 hr
100 mg PO BID
Discharge Orders:
Discharge Patient (As Directed); Ordered 04/11/24
Ordered By: Toni Romo
Discharge Date and Time
Discharge Date/Time: 04/11/24 13:27
Print Language: GERMAN
[2024-04-11] MEDS: LANOXIN 62.5 MCG PO (12:08)
[2024-04-11 12:26] LABS: Glucose - Point of Care 134 mg/dl (70-99)
--- NOTE | 2024-04-11 13:08 | CM ---
Spoke with patient's via phone to discuss discharge plan
Plan: Discharge to home today with [facility]
will transport home
[facility] liaison notified via text
== END 2024-04-11 13:27 | disposition home health service (06) | DRG 813 ==
LOC: IMU 13:25
PROVIDERS: Hospitalist; Physician Assistant Medical; ADMITTING PHYSICIAN Hospitalist; ATTENDING PHYSICIAN Internal Medicine; CONSULT PHYSICIAN Internal Medicine Cardiovascular Disease; CONSULT PHYSICIAN Student in an Organized Health Care Education/Training Program; EMERGENCY PHYSICIAN Student in an Organized Health Care Education/Training Program; FAMILY PHYSICIAN Nurse Practitioner Primary Care
PROC: 30233N1 Transfusion of Nonautologous Red Blood Cells into Peripheral Vein, Percutaneous Approach (ICD-10-PCS; 2024-04-05)
PROC: 0D598ZZ Destruction of Duodenum, Via Natural or Artificial Opening Endoscopic (ICD-10-PCS; 2024-04-07)
PROC: 3E0G8GC Introduction of Other Therapeutic Substance into Upper GI, Via Natural or Artificial Opening Endoscopic (ICD-10-PCS; 2024-04-07)
DX: D68.32 Hemorrhagic disorder due to extrinsic circulating anticoagulants (principal); K26.0 Acute duodenal ulcer with hemorrhage; K25.4 Chronic or unspecified gastric ulcer with hemorrhage; D62 Acute posthemorrhagic anemia; I48.19 Other persistent atrial fibrillation; F03.93 Unspecified dementia, unspecified severity, with mood disturbance; F03.94 Unspecified dementia, unspecified severity, with anxiety; R29.6 Repeated falls; E11.9 Type 2 diabetes mellitus without complications; F32.A Depression, unspecified; K31.89 Other diseases of stomach and duodenum; N40.0 Benign prostatic hyperplasia without lower urinary tract symptoms; E78.00 Pure hypercholesterolemia, unspecified; K20.90 Esophagitis, unspecified without bleeding; F10.11 Alcohol abuse, in remission; T45.515A Adverse effect of anticoagulants, initial encounter; I50.9 Heart failure, unspecified; G83.9 Paralytic syndrome, unspecified; Y92.89 Other specified places as the place of occurrence of the external cause; I11.0 Hypertensive heart disease with heart failure; D72.819 Decreased white blood cell count, unspecified; I95.9 Hypotension, unspecified; R55 Syncope and collapse; R53.83 Other fatigue; Z79.01 Long term (current) use of anticoagulants; Z79.84 Long term (current) use of oral hypoglycemic drugs; Z85.038 Personal history of other malignant neoplasm of large intestine; Z90.49 Acquired absence of other specified parts of digestive tract; Z87.891 Personal history of nicotine dependence; Z80.0 Family history of malignant neoplasm of digestive organs
CPT/HCPCS: 36430; 80048; 80053; 82607; 82728; 82746; 82962; 83036; 83540; 83550; 83735; 85014; 85018; 85025; 85027; 85610; 85730; 86850; 86900; 86901; 86920; 93005; 96365; 96366; 97116; 97162; 97166; 97530; 97535; 99291; P9016

== ENCOUNTER 2024-07-22 06:26 | Day surgery (SDC) | payer OTHER, SELFPAY ==
[2024-07-22 12:13] LABS: Glucose - Point of Care 106 mg/dl (70-99)
== END 2024-07-22 14:21 | disposition home or self-care (01) ==
LOC: GI 06:26
PROVIDERS: ATTENDING PHYSICIAN Student in an Organized Health Care Education/Training Program; FAMILY PHYSICIAN Nurse Practitioner Primary Care
DX: K29.70 Gastritis, unspecified, without bleeding (principal); K29.50 Unspecified chronic gastritis without bleeding; K20.90 Esophagitis, unspecified without bleeding; K22.89 Other specified disease of esophagus; K44.9 Diaphragmatic hernia without obstruction or gangrene; K31.89 Other diseases of stomach and duodenum
CPT/HCPCS: 43239; 88305; 82962; 88342

== ENCOUNTER → 2025-03-25 10:59 | Outpatient (REF) | payer OTHER, SELFPAY | LOC: RAD 10:59 | PROVIDERS: ATTENDING PHYSICIAN Nurse Practitioner Primary Care | DX: R93.89 Abnormal findings on diagnostic imaging of other specified body structures (principal) | CPT/HCPCS: 71046 ==